=== PATIENT | female | born 1985 ===

== ENCOUNTER 2016-12-14 07:42 | Day surgery (SDC) | payer OTHER ==
[2016-08-24 01:08] VITALS: BMI 30.2
[2016-12-14] MEDS ORDERED: Lactated Ringer's 500 ML IV ONE (10:13)
[2016-12-14 10:17] VITALS: TEMP 96.7
[2016-12-14 11:45] VITALS: O2SAT 99
[2016-12-14 11:47] VITALS: BP 120/70; PULSE 88; RESP 14
== END 2016-12-14 12:00 | disposition home or self-care (01) ==
LOC: H.ENDO 07:42
PROVIDERS: ATTEND Internal Medicine Gastroenterology
DX: K30 Functional dyspepsia (principal); K31.9 Disease of stomach and duodenum, unspecified

== ENCOUNTER 2017-02-07 15:55 | Emergency (ER) | payer OTHER ==
[2017-02-07 15:55] VITALS: BMI 30.2
[2017-02-07 16:01] VITALS: BP 142/81; RESP 18; O2SAT 99
--- NOTE | 2017-02-07 16:27 | ED PDOC ---
HPI: CCC, URI, Sore Throat Time Seen by Provider: 02/07/17 16:02 Chief Complaint (Nursing): ENT Problem Chief Complaint (Provider): left ear pain History Per: Patient Onset/Duration Of Symptoms: Days (x3 days) Associated Symptoms: Fever. denies: Cough, Nasal Congestion Ear Symptoms: Left: Ear Pain, Ear Swelling Additional Complaint(s): 31 year old female presents to the ED with left ear pain for 3 days associated with swelling to left ear and fever. Tylenol has helped the fever and the pain somewhat. Patient denies any bleeding or drainage from left ear. She has slight muffled hearing. Denies any dizziness or headache, no associated sore throat. PMD: Sammy Mckinley Past Medical History Reviewed: Historical Data, Nursing Documentation, Vital Signs Vital Signs: Last Vital Signs Temp 100.0 F H 02/07/17 15:59 Pulse 105 H 02/07/17 15:59 Resp 18 02/07/17 15:59 BP 142/81 02/07/17 15:59 Pulse Ox 99 02/07/17 16:36 - Medical History PMH: HTN - Surgical History Surgical History: - Family History Family History: States: No Known Family Hx - Living Arrangements Living Arrangements: With Family - Social History Current smoker - smoking cessation education provided: No Alcohol: None Drugs: Denies - Home Medications Home Medications: Ambulatory Orders Medication Instructions Recorded Losartan/Hydrochlorothiazide 1 tab PO DAILY 12/14/16 [Losartan-Hctz 100-12.5 mg Tab] Ibuprofen [Motrin] 600 mg PO Q6 PRN #15 tab 02/07/17 Neomycin/Polymyxin/Hydrocort 4 drop TOP BID #1 bottle 02/07/17 [Cortisporin Otic Soln] Sulfamethoxazole/Trimethoprim 1 tab PO BID #14 tab 02/07/17 [Bactrim DS 800 mg-160 mg] - Allergies Allergies/Adverse Reactions: Allergies Allergy/AdvReac Type Severity Reaction Status Date / Time No Known Allergies Allergy Verified 12/14/16 10:03 Review of Systems ROS Statement: Except As Marked, All Systems Reviewed And Found Negative Constitutional: Positive for: Fever ENT: Positive for: Ear Pain (Left). Negative for: Throat Pain, Throat Swelling Respiratory: Negative for: Cough, Other (No congestion.) Gastrointestinal: Negative for: Nausea, Vomiting Neurological: Negative for: Headache, Dizziness Physical Exam - Reviewed Nursing Documentation Reviewed: Yes Vital Signs Reviewed: Yes - Physical Exam Appears: Positive for: Well, Non-toxic, No Acute Distress Head Exam: Positive for: ATRAUMATIC, NORMAL INSPECTION, NORMOCEPHALIC Skin: Positive for: Normal Color. Negative for: Rash Eye Exam: Positive for: Normal appearance ENT: Positive for: Other (Left ear - moderate swelling and exudate to left AC consistent with otitis externa. Moderate pain on pulling external ear. No external cellulitis, no active bleeding, no drainage) Neck: Positive for: Painless ROM Cardiovascular/Chest: Positive for: Regular Rate, Rhythm Respiratory: Positive for: Normal Breath Sounds Neurologic/Psych: Positive for: Alert, Oriented, Gait (steady) - Laboratory Results Urine POC: Negative - ECG O2 Sat by Pulse Oximetry: 99 (RA) Pulse Ox Interpretation: Normal Medical Decision Making Medical Decision Makin: Initial Impression: Otitis externa Initial Plan: * test * Motrin dose * Re-Evaluation Patient will be prescribed cortisporin otic drops, bactrim and motrin. Patient was referred to ENT cannoneer and instructed to follow up in 1-2 days. Scribe Attestation: Documented by Sabino Hayward acting as a scribe for Mackenzie White PA-C. Provider Scribe Attestation: All medical record entries made by the Scribe were at my direction and personally dictated by me. I have reviewed the chart and agree that the record accurately reflects my personal performance of the history, physical exam, medical decision making, and the department course for this patient. I have also personally directed, reviewed, and agree with the discharge instructions and disposition. Disposition - Clinical Impression Clinical Impression: Otitis externa - Patient ED Disposition Is Patient to be Admitted: No Counseled Patient/Family Regarding: Diagnosis, Need For Followup, Rx Given - Disposition Referrals: Boris Redd MD [Staff Provider] - Disposition: Routine/Home Disposition Time: 17:16 Condition: STABLE Additional Instructions: Take rx meds as directed. Follow up in 1-2 days with ear, nose and throat specialist. Prescriptions: Ibuprofen [Motrin] 600 mg PO Q6 PRN #15 tab PRN Reason: Pain, Moderate (4-7) Neomycin/Polymyxin/Hydrocort [Cortisporin Otic Soln] 4 drop TOP BID #1 bottle Sulfamethoxazole/Trimethoprim [Bactrim DS 800 mg-160 mg] 1 tab PO BID #14 tab Instructions: Otitis Externa (ED) Forms: [facility] (Belarusian) Print Language: CROATIAN
[2017-02-07 17:15] VITALS: PULSE 88; TEMP 99.4
== END 2017-02-07 17:54 | disposition home or self-care (01) ==
LOC: H.ER 15:55
DX: H60.92 Unspecified otitis externa, left ear (principal)

== ENCOUNTER 2017-04-11 14:56 | Emergency (ER) | payer OTHER ==
[2017-04-11 14:57] VITALS: BMI 30.2
[2017-04-11 15:04] VITALS: BP 114/76; PULSE 79; RESP 16; TEMP 98.4; O2SAT 99
--- NOTE | 2017-04-11 16:07 | ED PDOC ---
Upper Extremity Pain/Injury Time Seen by Provider: 04/11/17 15:07 Chief Complaint (Nursing): Upper Extremity Problem/Injury Chief Complaint (Provider): Finger and Hand Pain History Per: Patient History/Exam Limitations: no limitations Onset/Duration Of Symptoms: Days Current Symptoms Are (Timing): Still Present Quality: "Pain" Pain Scale Rating Of: 10 Exacerbating Factor(s): Movement Additional Complaint(s): Collette Meyer, a 32 year old female, who has a past medical history of hypertension presents to the ED complaining of right hand and finger pain. The patient states that the pain radiates up her arm to her neck. She states that the pain is very severe and because of it she cannot bend her fingers. Patient also notes some tingling in the right arm. She further reports that she was seen by a neurologist who told her she had a pinched nerve. She states that the physical therapy is not working and neither is the tramadol she was prescribed. PMD:Dr. Andrea,Baudilio Mccabe Past Medical History Reviewed: Historical Data, Nursing Documentation, Vital Signs Vital Signs: Last Vital Signs Temp 98.4 F 04/11/17 15:00 Pulse 79 04/11/17 15:00 Resp 16 04/11/17 15:00 BP 114/76 04/11/17 15:00 Pulse Ox 99 04/11/17 15:00 - Medical History PMH: HTN Denies: Chronic Kidney Disease - Surgical History Surgical History: No Surg Hx, - Family History Family History: States: Unknown Family Hx - Social History Current smoker - smoking cessation education provided: No Ex-Smoker (has not smoked in the last 12 months): No Alcohol: Social Drugs: Denies - Immunization History Hx Tetanus Toxoid Vaccination: No Hx Influenza Vaccination: No Hx Pneumococcal Vaccination: No - Home Medications Home Medications: Ambulatory Orders Medication Instructions Recorded Losartan/Hydrochlorothiazide 1 tab PO DAILY 12/14/16 [Losartan-Hctz 100-12.5 mg Tab] Ibuprofen [Motrin] 600 mg PO Q6 PRN #15 tab 02/07/17 Neomycin/Polymyxin/Hydrocort 4 drop TOP BID #1 bottle 02/07/17 [Cortisporin Otic Soln] Sulfamethoxazole/Trimethoprim 1 tab PO BID #14 tab 02/07/17 [Bactrim DS 800 mg-160 mg] - Allergies Allergies/Adverse Reactions: Allergies Allergy/AdvReac Type Severity Reaction Status Date / Time No Known Allergies Allergy Verified 12/14/16 10:03 Review of Systems Musculoskeletal: Positive for: Hand Pain (right and pain) Physical Exam - Reviewed Nursing Documentation Reviewed: Yes Vital Signs Reviewed: Yes - Physical Exam Appears: Positive for: Well, Non-toxic, No Acute Distress Head Exam: Positive for: ATRAUMATIC, NORMAL INSPECTION, NORMOCEPHALIC Skin: Positive for: Normal Color, Warm, DRY Eye Exam: Positive for: Normal appearance ENT: Positive for: Normal ENT Inspection Neck: Positive for: Normal, Painless ROM Cardiovascular/Chest: Positive for: Regular Rate, Rhythm Respiratory: Positive for: Normal Breath Sounds. Negative for: Accessory Muscle Use Pulses-Radial (L): 2+ Pulses-Radial (R): 2+ Back: Positive for: Normal Inspection Extremity: Positive for: Normal ROM (Right wrist ), Swelling, Other ((+) Tinnel and phalen's right wrist ). Negative for: Deformity Neurologic/Psych: Positive for: Alert, Oriented - ECG O2 Sat by Pulse Oximetry: 99 (RA) Pulse Ox Interpretation: Normal Medical Decision Making Medical Decision Makin Initial Impression 32 y/o female presenting with right hand pain Initial Plan: * Upreg * Toradol 600mg IM * Reevaluation * * Wrist splint given ___ Scribe Attestation Documented by Matilda Robledo acting as a scribe for Brenna Neol PA-C. Scribe Attestation All medical record entries made by the Scribe were at my direction and personally dictated by me. I have reviewed the chart and agree that the record accurately reflects my personal performance of the history, physical exam, medical decision making, and the department course for this patient. I have also personally directed, reviewed, and agree with the discharge instructions and disposition. Disposition - Clinical Impression Clinical Impression: Carpal tunnel syndrome - Patient ED Disposition Is Patient to be Admitted: No Counseled Patient/Family Regarding: Studies Performed, Diagnosis - Disposition Disposition: Routine/Home Disposition Time: 16:00 Condition: STABLE Instructions: Carpal Tunnel Syndrome (ED) Forms: [facility] (Lithuanian), [facility] ED School/Work Excuse Print Language: TAMAZIGHT - POA Present On Arrival: None
== END 2017-04-11 16:31 | disposition home or self-care (01) ==
LOC: H.ER 14:56
DX: G56.01 Carpal tunnel syndrome, right upper limb (principal)
CPT/HCPCS: 81025; 96372; 99283; J1885

== ENCOUNTER 2017-07-04 10:22 | Emergency (ER) | payer MEDICAID, OTHER ==
[2017-07-04 10:29] VITALS: BMI 33.6
[2017-07-04] MEDS ORDERED: Sodium Chloride 0.9% 1,000 ML IV STA (10:55)
--- NOTE | 2017-07-04 10:59 | ED PDOC ---
HPI: Female Pain Time Seen by Provider: 07/04/17 10:27 Chief Complaint (Nursing): Back Pain Chief Complaint (Provider): UTI History Per: Patient Additional Complaint(s): Patient is a 32 yo female, PMH of HTN, presents to ED with complaints of having burning while urinating last night and got worse this morning. Mild back pain. No feve ror chills. Mild nausea, no vomiting. Past Medical History Reviewed: Historical Data, Nursing Documentation, Vital Signs Vital Signs: Last Vital Signs Temp 97 F L 07/04/17 10:40 Pulse 84 07/04/17 10:40 Resp BP 178/100 H 07/04/17 10:40 Pulse Ox 100 07/04/17 10:27 - Medical History PMH: HTN Denies: Chronic Kidney Disease - Surgical History Surgical History: - Family History Family History: States: Unknown Family Hx - Living Arrangements Living Arrangements: With Family - Social History Current smoker - smoking cessation education provided: No Alcohol: Social Drugs: Denies - Immunization History Hx Tetanus Toxoid Vaccination: No Hx Influenza Vaccination: No Hx Pneumococcal Vaccination: No - Home Medications Home Medications: Ambulatory Orders Medication Instructions Recorded Losartan/Hydrochlorothiazide 1 tab PO DAILY 12/14/16 [Losartan-Hctz 100-12.5 mg Tab] Ibuprofen [Motrin] 600 mg PO Q6 PRN #15 tab 02/07/17 Neomycin/Polymyxin/Hydrocort 4 drop TOP BID #1 bottle 02/07/17 [Cortisporin Otic Soln] Sulfamethoxazole/Trimethoprim 1 tab PO BID #14 tab 02/07/17 [Bactrim DS 800 mg-160 mg] Cephalexin [cephalexin] 500 mg PO BID 14 Days cap 07/04/17 Ibuprofen [Motrin] 600 mg PO Q6 #20 tab 07/04/17 - Allergies Allergies/Adverse Reactions: Allergies Allergy/AdvReac Type Severity Reaction Status Date / Time No Known Allergies Allergy Verified 12/14/16 10:03 Review of Systems ROS Statement: Except As Marked, All Systems Reviewed And Found Negative Gastrointestinal: Positive for: Abdominal Pain Genitourinary Female: Positive for: Dysuria Physical Exam - Reviewed Nursing Documentation Reviewed: Yes Vital Signs Reviewed: Yes - Physical Exam Appears: Positive for: Non-toxic, No Acute Distress, Uncomfortable Head Exam: Positive for: ATRAUMATIC, NORMAL INSPECTION, NORMOCEPHALIC Skin: Positive for: Normal Color, Warm, DRY Eye Exam: Positive for: EOMI, Normal appearance, PERRL ENT: Positive for: Normal ENT Inspection Neck: Positive for: Normal, Painless ROM Cardiovascular/Chest: Positive for: Regular Rate, Rhythm Respiratory: Positive for: CNT, Normal Breath Sounds Gastrointestinal/Abdominal: Positive for: Bowel Sounds, Soft, Tenderness ( suprapubic) Back: Positive for: Normal Inspection, L CVA Tenderness, R CVA Tenderness Extremity: Positive for: Normal ROM Neurologic/Psych: Positive for: Alert, Oriented - Laboratory Results Result Diagrams: 07/04/17 11:21 07/04/17 11:21 - ECG O2 Sat by Pulse Oximetry: 100 Medical Decision Making Medical Decision Making: Iv access established and treatment initiate with IVF and Toradol. Diagnostics ordered and labs reviewed with pt who demonstrated full understanding. Pt afebrile. WBC 12 IV Rocephin started for DX. Pyelonephritis Pt reports feeling greatly improved on re-eval. Importance of follow up stressed. Advised to return to ED with any concerns. Disposition - Clinical Impression Clinical Impression: Pyelonephritis - Patient ED Disposition Is Patient to be Admitted: No - Disposition Disposition: Routine/Home Disposition Time: 12:00 Condition: STABLE Prescriptions: Cephalexin [cephalexin] 500 mg PO BID 14 Days cap Ibuprofen [Motrin] 600 mg PO Q6 #20 tab Instructions: Acute Pyelonephritis (ED) Forms: [facility] (Lithuanian) Print Language: LITHUANIAN
[2017-07-04 11:26] LABS: BASO # 0.1 K/uL (0.0-0.2); BASO % 0.5 % (0.0-2.0); EOS % 0.2 % (0.0-4.0); HEMOGLOBIN 13.4 g/dL (12.0-16.0); LYMPH # 2.4 K/uL (1.0-4.3); LYMPH % 19.7 % (20.0-40.0); MEAN CELL VOLUME 84.4 fl (81.0-99.0); MEAN CORPUSCULAR HEMOGLOBIN 27.9 pg (27.0-31.0); MEAN PLATELET VOLUME 10.8 fl (7.2-11.7); MONO # 0.5 K/uL (0.0-0.8); MONO % 3.8 % (0.0-10.0); NEUT # 9.1 K/uL (1.8-7.0); NEUT % 75.8 % (50.0-75.0); RBC 4.82 Mil/uL (3.80-5.20); RED CELL DISTRIBUTION WIDTH 13.4 % (11.5-14.5)
[2017-07-04 11:38] LABS: ALBUMIN 4.6 g/dL (3.5-5.0); ALT/SGPT 75 U/L (9-52); AST/SGOT 42 U/L (14-36); BLOOD UREA NITROGEN 10 mg/dl (7-17); CALCIUM 9.6 mg/dL (8.4-10.2); GFR AFRICAN-AMERICAN > 60; GFR NON-AFRICAN AMERICAN > 60
[2017-07-04 11:38] LABS: SQUAMOUS EPITHIAL 3 /hpf (0-5); URINE AMORPHOUS SEDIMENT RARE /ul (<OCC); URINE BILIRUBIN NEGATIVE (NEGATIVE); URINE BLOOD LARGE (NEGATIVE); URINE CLARITY CLOUDY (Clear); URINE COLOR YELLOW (YELLOW); URINE GLUCOSE (UA) NEG (Normal); URINE LEUKOCYTE ESTERASE LARGE Leu/uL (Negative); URINE NITRATE POSITIVE (NEGATIVE); URINE PROTEIN 100 mg/dL (NEGATIVE); URINE UROBILINOGEN 0.2-1.0 mg/dL (0.2-1.0)
[2017-07-04 11:39] LABS: ALB/GLOB RATIO 1.1 (1.0-2.1)
[2017-07-04] MEDS ORDERED: cefTRIAXone (Rocephin) 1 gm Inj ONE (12:18)
[2017-07-04 13:51] VITALS: BP 144/81; PULSE 83; TEMP 98.6; O2SAT 99
== END 2017-07-04 14:00 | disposition home or self-care (01) ==
LOC: H.ER 10:22
DX: N12 Tubulo-interstitial nephritis, not specified as acute or chronic (principal); I10 Essential (primary) hypertension
CPT/HCPCS: 80053; 81003; 81025; 85025; 87086; 87181; 96374; 99283; J0696; J1885; J7040

== ENCOUNTER 2017-12-20 10:24 | Emergency (ER) | payer MEDICAID, OTHER ==
[2017-12-20 10:28] VITALS: BMI 34.7
[2017-12-20 10:29] VITALS: BP 130/86; PULSE 87; RESP 16; TEMP 98; O2SAT 98
--- NOTE | 2017-12-20 10:56 | ED PDOC ---
HPI: Headache Time Seen by Provider: 12/20/17 10:40 Chief Complaint (Provider): Bilateral Arm & Shoulder Pain History Per: Patient History/Exam Limitations: no limitations Current Symptoms Are (Timing): Still Present Additional Complaint(s): 32 years old female with history of hypertension presents to the ED for evaluation of bilateral arm and shoulder pain onset 1 month. Patient reports she has been unable to sleep from the pain and developed headaches diffused to face 3 days ago. She states the headaches are not the worst of her life and is non thunderclap headache. Patient reports pain worsens with movement and associated with numbness. Patient reports taking Ibuprofen. She denies any chest pain, fever, vomiting, back pain, abdominal pain or weakness. PMD: Tootie Haji Past Medical History Reviewed: Historical Data, Nursing Documentation, Vital Signs Vital Signs: Last Vital Signs Temp 98 F 12/20/17 10:28 Pulse 87 12/20/17 10:28 Resp 16 12/20/17 10:28 BP 130/86 12/20/17 10:28 Pulse Ox 98 12/20/17 10:28 - Medical History PMH: HTN Denies: Chronic Kidney Disease - Surgical History Surgical History: - Family History Family History: States: Unknown Family Hx - Social History Current smoker - smoking cessation education provided: No Alcohol: None Drugs: Denies - Immunization History Hx Tetanus Toxoid Vaccination: No Hx Influenza Vaccination: No Hx Pneumococcal Vaccination: No - Home Medications Home Medications: Ambulatory Orders Medication Instructions Recorded Losartan/Hydrochlorothiazide 1 tab PO DAILY 12/14/16 [Losartan-Hctz 100-12.5 mg Tab] Ibuprofen [Motrin] 600 mg PO Q6 PRN #15 tab 02/07/17 Neomycin/Polymyxin/Hydrocort 4 drop TOP BID #1 bottle 02/07/17 [Cortisporin Otic Soln] Sulfamethoxazole/Trimethoprim 1 tab PO BID #14 tab 02/07/17 [Bactrim DS 800 mg-160 mg] Cephalexin [cephalexin] 500 mg PO BID 14 Days cap 07/04/17 Ibuprofen [Motrin] 600 mg PO Q6 #20 tab 07/04/17 Cyclobenzaprine [Cyclobenzaprine 10 mg PO TID PRN #15 tab 12/20/17 HCl] Methylprednisolone [Medrol Dose 4 mg PO ASDIR #21 mg 12/20/17 Pack (21 tabs)] traMADol [Ultram] 50 mg PO TID PRN #15 tab 12/20/17 - Allergies Allergies/Adverse Reactions: Allergies Allergy/AdvReac Type Severity Reaction Status Date / Time No Known Allergies Allergy Verified 12/20/17 10:56 Review of Systems ROS Statement: Except As Marked, All Systems Reviewed And Found Negative Constitutional: Negative for: Fever Cardiovascular: Negative for: Chest Pain Gastrointestinal: Negative for: Vomiting Musculoskeletal: Positive for: Neck Pain, Shoulder Pain (bilateral), Arm Pain ( bilateral), Hand Pain (bilateral). Negative for: Back Pain Neurological: Positive for: Numbness, Headache. Negative for: Weakness Physical Exam - Reviewed Nursing Documentation Reviewed: Yes Vital Signs Reviewed: Yes - Physical Exam Appears: Positive for: Non-toxic, No Acute Distress Head Exam: Positive for: ATRAUMATIC, NORMOCEPHALIC Skin: Positive for: Normal Color, Warm, Dry Eye Exam: Positive for: Normal appearance, EOMI, PERRL ENT: Positive for: Normal ENT Inspection Neck: Positive for: Supple. Negative for: Normal (Diffused tenderness to bilateral neck paraspinal) Cardiovascular/Chest: Positive for: Regular Rate, Rhythm. Negative for: Murmur Respiratory: Positive for: Normal Breath Sounds. Negative for: Respiratory Distress Gastrointestinal/Abdominal: Positive for: Normal Exam, Soft. Negative for: Tenderness Back: Positive for: Other (trapezius) Extremity: Positive for: Normal ROM (with pain), Tenderness (on palpitation to right wrist carpal tunnel area) Neurologic/Psych: Positive for: Alert, Oriented - ECG O2 Sat by Pulse Oximetry: 98 (RA) Pulse Ox Interpretation: Normal - Progress Re-evaluation Time: 14:00 Condition: Re-examined, Improved Medical Decision Making Medical Decision Making: Time: 1117 Initial Impression: headaches, neck pain, bilateral arm pain. Differential includes but not limited to carbinol syndrome, tension headaches. Initial Plan: --CT Head w/o contrast --Flexeril 10 mg PO --Toradol 30 mg IM [address] FINDINGS: HEMORRHAGE: No intracranial hemorrhage. BRAIN: No mass effect or edema. No atrophy or chronic microvascular ischemic changes. VENTRICLES: Unremarkable. No hydrocephalus. CALVARIUM: Unremarkable. PARANASAL SINUSES: Unremarkable as visualized. No significant inflammatory changes. MASTOID AIR CELLS: Unremarkable as visualized. No inflammatory changes. OTHER FINDINGS: None. IMPRESSION: No acute intracranial pathology. ----- Scribe Attestation: Documented by Fannie Saleh, acting as a scribe for Helen Padgett MD. Provider Scribe Attestation: All medical record entries made by the Scribe were at my direction and personally dictated by me. I have reviewed the chart and agree that the record accurately reflects my personal performance of the history, physical exam, medical decision making, and the department course for this patient. I have also personally directed, reviewed, and agree with the discharge instructions and disposition. Disposition - Clinical Impression Clinical Impression: Headache, Carpal tunnel syndrome, Acute pain of both shoulders - Patient ED Disposition Is Patient to be Admitted: No Doctor Will See Patient In The: Office Counseled Patient/Family Regarding: Studies Performed, Diagnosis, Need For Followup - Disposition Referrals: Mark Talley MD [Staff Provider] - Disposition: Routine/Home Disposition Time: 14:04 Condition: GOOD Additional Instructions: Take your medications as instructed. Wear wrist brace on affected hands. Follow up with your PCP in 2--3 days. Prescriptions: Cyclobenzaprine [Cyclobenzaprine HCl] 10 mg PO TID PRN #15 tab PRN Reason: Muscle Spasm Methylprednisolone [Medrol Dose Pack (21 tabs)] 4 mg PO ASDIR #21 mg traMADol [Ultram] 50 mg PO TID PRN #15 tab PRN Reason: Pain, Severe (8-10) Instructions: Carpal Tunnel Syndrome (DC), Headache, Adult (DC), Shoulder Pain (DC) Forms: [facility] ED School/Work Excuse Print Language: ANGUILLAN
--- NOTE | 2017-12-20 12:07 | CT ---
PROCEDURE: CT HEAD WITHOUT CONTRAST. HISTORY: headache COMPARISON: None available. TECHNIQUE: Axial computed tomography images were obtained through the head/brain without intravenous contrast. Radiation dose: Total exam DLP = 796.3 mGy-cm. This CT exam was performed using one or more of the following dose reduction techniques: Automated exposure control, adjustment of the mA and/or kV according to patient size, and/or use of iterative reconstruction technique. FINDINGS: HEMORRHAGE: No intracranial hemorrhage. BRAIN: No mass effect or edema. No atrophy or chronic microvascular ischemic changes. VENTRICLES: Unremarkable. No hydrocephalus. CALVARIUM: Unremarkable. PARANASAL SINUSES: Unremarkable as visualized. No significant inflammatory changes. MASTOID AIR CELLS: Unremarkable as visualized. No inflammatory changes. OTHER FINDINGS: None. IMPRESSION: No acute intracranial pathology.
== END 2017-12-20 14:19 | disposition home or self-care (01) ==
LOC: H.ER 10:24
DX: G56.00 Carpal tunnel syndrome, unspecified upper limb (principal); M25.511 Pain in right shoulder; M25.512 Pain in left shoulder
CPT/HCPCS: 70450; 81025; 96372; 99283; J1885

== ENCOUNTER 2017-12-29 20:15 | Emergency (ER) | payer OTHER ==
[2017-12-29 20:16] VITALS: BMI 34.7
[2017-12-29] MEDS ORDERED: Sodium Chloride 0.9% 1,000 ML IV STA (20:55)
--- NOTE | 2017-12-29 21:02 | ED PDOC ---
HPI: Abdomen Time Seen by Provider: 12/29/17 20:49 Chief Complaint (Nursing): Abdominal Pain Chief Complaint (Provider): Abdominal Pain History Per: Patient History/Exam Limitations: no limitations Onset/Duration Of Symptoms: Days (x2) Current Symptoms Are (Timing): Still Present Associated Symptoms: Fever, Nausea, Diarrhea. denies: Urinary Symptoms Additional Complaint(s): 32 year old female presents to the ED complaining of fever, nausea, abdominal pain, and diarrhea for 2 days. Patient last took tylenol at 14:00 and pepcid at 17:00 without relief. Denies any genitourinary symptoms. PMD: Baudilio Barton Past Medical History Reviewed: Historical Data, Nursing Documentation, Vital Signs Vital Signs: Last Vital Signs Temp 99.3 F 12/30/17 03:36 Pulse 97 H 12/30/17 03:36 Resp 18 12/30/17 03:36 BP 130/79 12/30/17 03:36 Pulse Ox 97 01/02/18 10:50 - Medical History PMH: HTN Denies: Chronic Kidney Disease Other PMH: H. Pylori - Surgical History Surgical History: - Family History Family History: States: Unknown Family Hx - Social History Current smoker - smoking cessation education provided: No Alcohol: None - Immunization History Hx Tetanus Toxoid Vaccination: No Hx Influenza Vaccination: No Hx Pneumococcal Vaccination: No - Home Medications Home Medications: Ambulatory Orders Medication Instructions Recorded Losartan/Hydrochlorothiazide 1 tab PO DAILY 12/14/16 [Losartan-Hctz 100-12.5 mg Tab] Ibuprofen [Motrin] 600 mg PO Q6 PRN #15 tab 02/07/17 Neomycin/Polymyxin/Hydrocort 4 drop TOP BID #1 bottle 02/07/17 [Cortisporin Otic Soln] Sulfamethoxazole/Trimethoprim 1 tab PO BID #14 tab 02/07/17 [Bactrim DS 800 mg-160 mg] Cephalexin [cephalexin] 500 mg PO BID 14 Days cap 07/04/17 Ibuprofen [Motrin] 600 mg PO Q6 #20 tab 07/04/17 Cyclobenzaprine [Cyclobenzaprine 10 mg PO TID PRN #15 tab 12/20/17 HCl] Methylprednisolone [Medrol Dose 4 mg PO ASDIR #21 mg 12/20/17 Pack (21 tabs)] traMADol [Ultram] 50 mg PO TID PRN #15 tab 12/20/17 Ciprofloxacin [Cipro] 500 mg PO BID 7 Days tab 12/30/17 Dicyclomine [Bentyl] 20 mg PO BID #30 tab 12/30/17 Famotidine [Pepcid] 20 mg PO BID #20 tab 12/30/17 - Allergies Allergies/Adverse Reactions: Allergies Allergy/AdvReac Type Severity Reaction Status Date / Time No Known Allergies Allergy Verified 12/20/17 10:56 Review of Systems ROS Statement: Except As Marked, All Systems Reviewed And Found Negative Constitutional: Positive for: Fever Gastrointestinal: Positive for: Nausea, Abdominal Pain, Diarrhea Genitourinary Female: Negative for: Dysuria, Hematuria, Vaginal Discharge, Vaginal Bleeding Physical Exam - Reviewed Nursing Documentation Reviewed: Yes Vital Signs Reviewed: Yes - Physical Exam Appears: Positive for: Non-toxic, No Acute Distress (mild) Head Exam: Positive for: ATRAUMATIC, NORMOCEPHALIC Skin: Positive for: Normal Color, Warm, Dry Eye Exam: Positive for: Normal appearance Neck: Positive for: Normal, Painless ROM Cardiovascular/Chest: Positive for: Tachycardia Respiratory: Positive for: Normal Breath Sounds. Negative for: Wheezing, Respiratory Distress Gastrointestinal/Abdominal: Positive for: Tenderness (generalized). Negative for: Guarding, Rebound Back: Positive for: Normal Inspection. Negative for: L CVA Tenderness, R CVA Tenderness Extremity: Positive for: Normal ROM Neurologic/Psych: Positive for: Alert, Oriented. Negative for: Motor/Sensory Deficits - Laboratory Results Result Diagrams: 12/29/17 21:34 12/29/17 21:34 - ECG O2 Sat by Pulse Oximetry: 97 (RA) Pulse Ox Interpretation: Normal Medical Decision Making Medical Decision Making: Initial Impression: fever, abdominal pain. Differentials include but not limited to gastroenteritis, cholecystitis, appendicitis Initial Plan: --VBG shock panel --CT abd/pelvis --CMP --Lipase --ED urine --ED urine dipstick --CBC --PTT --Prothrombin --Morphine 2mg IV --Sodium chloride 1000mL IV --Tylenol 650mg PO --Zofran 4mg IV --Blood culture --Urine culture --Urinalysis 23:58 Patient states she is feeling better. Upon reevaluation, abdomen remains tender all 4 quadrants, tachy 119. Will order additional IVF, Morphine, Motrin and pelvic ultrasound. Scribe Attestation: Documented by Eliseo Padilla acting as a scribe for Stephany Bear MD. Provider Scribe Attestation: All medical record entries made by the Scribe were at my direction and personally dictated by me. I have reviewed the chart and agree that the record accurately reflects my personal performance of the history, physical exam, medical decision making, and the department course for this patient. I have also personally directed, reviewed, and agree with the discharge instructions and disposition. Disposition - Clinical Impression Clinical Impression: UTI (urinary tract infection), Gastritis - Disposition Referrals: Baudilio Andrea MD [Family Provider] - Disposition: Transfer of Care Disposition Time: 00:00 Condition: STABLE Prescriptions: Ciprofloxacin [Cipro] 500 mg PO BID 7 Days tab Dicyclomine [Bentyl] 20 mg PO BID #30 tab Famotidine [Pepcid] 20 mg PO BID #20 tab Instructions: Gastritis, Urinary Tract Infection, Adult (DC) Forms: [employer] ([place] Citizen), [facility] ED School/Work Excuse Print Language: [place] Patient Signed Over To: Anthony Oneill
[2017-12-29 21:39] LABS: BASO % 0.3 % (0.0-2.0); EOS % 0.2 % (0.0-4.0); HEMOGLOBIN 14.4 g/dL (12.0-16.0); LYMPH # 1.1 K/uL (1.0-4.3); LYMPH % 11.6 % (20.0-40.0); MEAN CELL VOLUME 86.3 fl (81.0-99.0); MEAN CORPUSCULAR HEMOGLOBIN 29.4 pg (27.0-31.0); MEAN CORPUSCULAR HGB CONC 34.1 g/dL (33.0-37.0); MEAN PLATELET VOLUME 10.6 fl (7.2-11.7); MONO # 0.4 K/uL (0.0-0.8); MONO % 4.2 % (0.0-10.0); NEUT # 8.1 K/uL (1.8-7.0); NEUT % 83.7 % (50.0-75.0); RBC 4.89 Mil/uL (3.80-5.20); RED CELL DISTRIBUTION WIDTH 13.2 % (11.5-14.5); WHITE BLOOD COUNT 9.7 K/uL (4.8-10.8)
[2017-12-29 21:39] LABS: VENOUS BLOOD GAS BASE EXCESS 3.9 mmol/L (0.0-2.0); VENOUS BLOOD GAS PCO2 42 mmHg (40-60); VENOUS BLOOD GAS PO2 32 mm/Hg (30-55); VENOUS BLOOD PH 7.44 (7.32-7.43)
[2017-12-29 22:08] LABS: INR 1.2 (0.9-1.2); PARTIAL THROMBOPLASTIN TIME 37.6 Seconds (25.6-37.1); PROTHROMBIN TIME 12.8 Seconds (9.8-13.1)
[2017-12-29 22:09] LABS: ALB/GLOB RATIO 1.2 (1.0-2.1); ALBUMIN 4.7 g/dL (3.5-5.0); ALT/SGPT 59 U/L (9-52); AST/SGOT 39 U/L (14-36); BLOOD UREA NITROGEN 12 mg/dl (7-17); CALCIUM 9.4 mg/dL (8.4-10.2); GFR AFRICAN-AMERICAN > 60; GFR NON-AFRICAN AMERICAN > 60; LIPASE 54 U/L (23-300)
[2017-12-29 22:25] LABS: URINE BILIRUBIN NEGATIVE (NEGATIVE); URINE CLARITY CLOUDY (Clear); URINE COLOR YELLOW (YELLOW); URINE GLUCOSE (UA) NEGATIVE (Normal)
[2017-12-29 22:26] LABS: SQUAMOUS EPITHIAL 5 /hpf (0-5); URINE BLOOD LARGE (NEGATIVE); URINE LEUKOCYTE ESTERASE NEGATIVE Leu/uL (Negative); URINE PROTEIN 100 mg/dL (NEGATIVE); URINE UROBILINOGEN 0.2 mg/dL (0.2-1.0)
[2017-12-29 22:27] LABS: URINE BACTERIA FEW (<OCC)
[2017-12-29] MEDS ORDERED: Potassium Chloride 20 mEq ER Tab PO STA (22:30)
[2017-12-29] MEDS ORDERED: Iohexol 300 100 ML IJ ONE (22:32)
[2017-12-29] MEDS ORDERED: Sodium Chloride 0.9% 50 ML IV ONE (22:33)
[2017-12-29] MEDS ORDERED: Potassium Chloride 20 mEq ER Tab PO ONE (23:13)
[2017-12-30] MEDS ORDERED: Sodium Chloride 0.9% 1,000 ML IV STA (00:07)
[2017-12-30 00:09] VITALS: RESP 18
[2017-12-30] MEDS ORDERED: cefTRIAXone (Rocephin) 1 gm Inj ONE (00:15)
--- NOTE | 2017-12-30 02:39 | ED PDOC ---
- Laboratory Results Result Diagrams: 12/29/17 21:34 12/29/17 21:34 - ECG O2 Sat by Pulse Oximetry: 98 (RA) Pulse Ox Interpretation: Normal Medical Decision Making Medical Decision Making: Time: 00:00 Patient was signed out to me by Dr. Bear pending CT and reevaluation. CT Abd/Pelvis: FINDINGS: Small left lung calcification. The liver is decreased in attenuation consistent with fatty infiltration. The spleen is normal. The pancreas is normal. No gallstones. The previously seen left UVJ calculi and left perinephric stranding/fluid is noted on the present. Questionable mild wall thickening of a few distal ileal loops in the right pelvis. Early developing enteritis cannot be excluded. A normal appendix is identified axial images from 112 through 114, coronal images 57 through 75. The uterus appears normal. There is poor definition of the ovaries secondary to surrounding unopacified small bowel loops. A small amount of free fluid is present within the pelvis. IMPRESSION: Possible early developing focal enteritis right lower quadrant.Clinical correlation recommended. Suboptimal visualization of the ovaries. Upon provider reevaluation patient is feeling better, is medically stable, and requires no further treatment in the ED at this time. U/S negative. HR improved. Patient will be discharged. Counseling was provided and all questions were answered regarding diagnosis and need for follow up with PMD. There is agreement to discharge plan. Return if symptoms persist or worsen. Scribe Attestation: Documented by, Gris Dwyer acting as a scribe for Anthony Oneill MD. Provider Scribe Attestation: All medical record entries made by the Scribe were at my direction and personally dictated by me. I have reviewed the chart and agree that the record accurately reflects my personal performance of the history, physical exam, medical decision making, and the department course for this patient. I have also personally directed, reviewed, and agree with the discharge instructions and disposition. Disposition - Clinical Impression Clinical Impression: UTI (urinary tract infection), Gastritis - POA Present On Arrival: None - Disposition Referrals: Baudilio Andrea MD [Family Provider] - Disposition: Routine/Home Disposition Time: 03:30 Condition: STABLE Prescriptions: Ciprofloxacin [Cipro] 500 mg PO BID 7 Days tab Dicyclomine [Bentyl] 20 mg PO BID #30 tab Famotidine [Pepcid] 20 mg PO BID #20 tab Instructions: Gastritis, Urinary Tract Infection, Adult (DC) Forms: [facility] (Kyr[place]) Print Language: JAPANESE
[2017-12-30 03:52] VITALS: BP 130/79; PULSE 97; TEMP 99.3
--- NOTE | 2017-12-30 10:27 | US ---
Date of service: 12/30/2017 HISTORY: BLQ pain COMPARISON: None available. TECHNIQUE: FINDINGS: UTERUS: Measures 12.0 x 5.4 x 6.3 cm. Normal in size and appearance. Anteverted. No fibroid or other mass lesion seen. ENDOMETRIUM: Measures 7.0 mm in diameter. Unremarkable. CERVIX: No cervical abnormality identified. RIGHT OVARY: Measures 3.1 x 2.1 x 1.9 cm. No solid mass. Normal flow. LEFT OVARY: Measures 3.5 x 2.3 x 1.9 cm. No solid mass. Normal flow. Small follicular cyst present measuring 1.1 cm in greatest dimension FREE FLUID: No significant free fluid noted. OTHER FINDINGS: None. IMPRESSION: No acute findings. Note that preliminary report provided by overnight radiology service
--- NOTE | 2017-12-30 12:30 | CT ---
Date of service: 12/29/2017 PROCEDURE: CT Abdomen and Pelvis with contrast HISTORY: Gen abd pain, fever, nausea, diarrhea COMPARISON: Comparison is made with the previous study dated 12/14/2015 TECHNIQUE: Contrast dose: 95 mL of Omnipaque 300. Axial and reformatted coronal and sagittal CT images of the abdomen and pelvis were obtained after IV contrast administration. Radiation dose: Total exam DLP = 850.26 mGy-cm. This CT exam was performed using one or more of the following dose reduction techniques: Automated exposure control, adjustment of the mA and/or kV according to patient size, and/or use of iterative reconstruction technique. FINDINGS: LOWER THORAX: No evidence of acute pathology. Ten linear opacity at the lingula is again noted suggestive of scar tissue. 4 millimeter calcified nodule at the left lower lobe again noted suggestive of calcified granuloma LIVER: [id number] fatty liver infiltration is again noted. No evidence of acute pathology or mass lesion in the liver. The portal vein is patent. GALLBLADDER AND BILE DUCTS: No evidence of acute cholecystitis or biliary obstruction PANCREAS: Unremarkable. No gross lesion or ductal dilatation. SPLEEN: Unremarkable. ADRENALS: Unremarkable. No mass. KIDNEYS AND URETERS: Unremarkable. No hydronephrosis. No solid mass. VASCULATURE: Unremarkable. No aortic aneurysm. BOWEL: There is mild wall thickening noted in the distal small bowel loops at the right lower abdomen and right pelvis suspicious for enteritis. O evidence of high-grade bowel obstruction. APPENDIX: No evidence of appendicitis. PERITONEUM: Unremarkable. No free fluid. No free air. LYMPH NODES: Unremarkable. No enlarged lymph nodes. BLADDER: Unremarkable. REPRODUCTIVE: The uterus is mildly enlarged and heterogeneous likely contains fibroid. BONES: No acute fracture. OTHER FINDINGS: None. IMPRESSION: Mild small-bowel wall thickening noted in the right lower abdomen suggestive of enteritis. Otherwise no evidence of acute pathology in the abdomen and pelvis. Preliminary report was submitted by [facility].
[2018-01-02 10:28] VITALS: O2SAT 97
== END 2017-12-30 03:53 | disposition home or self-care (01) ==
LOC: H.ER 20:15
DX: N39.0 Urinary tract infection, site not specified (principal); K29.70 Gastritis, unspecified, without bleeding; I10 Essential (primary) hypertension
CPT/HCPCS: 74177; 76830; 76856; 80053; 81003; 81025; 82803; 83690; 85025; 85610; 85730; 87040; 87086; 87205; 96374; 96375; 96376; 99284; J0696; J2270; J2405; J7030; Q9967

== ENCOUNTER 2018-01-02 11:14 | Inpatient (IN) | payer OTHER ==
[2018-01-02 11:17] VITALS: BMI 34.7
--- NOTE | 2018-01-02 11:41 | ED PDOC ---
HPI: Abdomen Time Seen by Provider: 01/02/18 11:25 Chief Complaint (Nursing): Abnormal Labs Chief Complaint (Provider): Positive blood culture History Per: Patient History/Exam Limitations: no limitations Additional Complaint(s): Pt was called to return to ED for + blood culture results from 12/29/17. Pt was evaluated for fever and abdominal pain, dx with enteritis and UTI, discharged with Cipro. Pt states she feels better, fever has resolved, only mild epigastric pain. Denies fever, nausea, vomiting, constipation, diarrhea, symptoms. Past Medical History Reviewed: Nursing Documentation, Vital Signs Vital Signs: Last Vital Signs Temp 97 F L 01/02/18 11:22 Pulse 83 01/02/18 11:22 Resp BP 151/90 H 01/02/18 11:22 Pulse Ox 100 01/02/18 11:57 - Medical History PMH: HTN Denies: Chronic Kidney Disease - Surgical History Surgical History: - Family History Family History: States: Unknown Family Hx - Social History Current smoker - smoking cessation education provided: No Alcohol: None - Immunization History Hx Tetanus Toxoid Vaccination: No Hx Influenza Vaccination: No Hx Pneumococcal Vaccination: No - Home Medications Home Medications: Ambulatory Orders Medication Instructions Recorded Losartan/Hydrochlorothiazide 1 tab PO DAILY 12/14/16 [Losartan-Hctz 100-12.5 mg Tab] Ciprofloxacin [Cipro] 500 mg PO BID 7 Days tab 12/30/17 Dicyclomine [Bentyl] 20 mg PO BID #30 tab 12/30/17 Famotidine [Pepcid] 20 mg PO DAILY 01/02/18 - Allergies Allergies/Adverse Reactions: Allergies Allergy/AdvReac Type Severity Reaction Status Date / Time No Known Allergies Allergy Verified 01/02/18 11:19 Review of Systems Constitutional: Negative for: Fever, Chills Cardiovascular: Negative for: Chest Pain, Palpitations Respiratory: Negative for: Cough, Shortness of Breath Gastrointestinal: Positive for: Abdominal Pain (Mild). Negative for: Nausea, Vomiting, Diarrhea, Hematochezia, Hematemesis Genitourinary Female: Negative for: Dysuria, Hematuria, Vaginal Discharge, Vaginal Bleeding Musculoskeletal: Negative for: Neck Pain, Back Pain Skin: Negative for: Rash, Lesions Neurological: Negative for: Headache, Dizziness Physical Exam - Reviewed Nursing Documentation Reviewed: Yes Vital Signs Reviewed: Yes - Physical Exam Appears: Positive for: Well, No Acute Distress Head Exam: Positive for: ATRAUMATIC, NORMAL INSPECTION Skin: Positive for: Normal Color, Warm, Dry Eye Exam: Positive for: Normal appearance, EOMI, PERRL Cardiovascular/Chest: Positive for: Regular Rate, Rhythm Respiratory: Positive for: Normal Breath Sounds. Negative for: Rales, Rhonchi, Wheezing Gastrointestinal/Abdominal: Positive for: Bowel Sounds, Soft, Tenderness (Mild epigastric). Negative for: Guarding, Rebound Back: Positive for: Normal Inspection. Negative for: L CVA Tenderness, R CVA Tenderness Extremity: Positive for: Normal ROM Neurologic/Psych: Positive for: Alert, Oriented - Laboratory Results Result Diagrams: 01/02/18 12:00 01/02/18 12:00 - ECG O2 Sat by Pulse Oximetry: 100 - Physician Consult Information Time Consulting Physican Contacted: 11:50 Physician Contacted: Maxwell Sun Outcome Of Conversation: Case discussed, recommends repeat blood cx, UA and urine cx, admit until organism identified, continue Cipro IV. Medical Decision Making Medical Decision Makin yo female with positive blood culture. - labs Disposition - Clinical Impression Clinical Impression: Urinary tract infection, Bacteremia - Disposition Disposition Time: 13:06 Condition: STABLE - Pt Status Changed To: Hospital Disposition Of: Inpatient - Admit Certification Admit to Inpatient:: After my assessment, the patient will require hospitalization for at least two midnights. This is because of the severity of symptoms shown, intensity of services needed, and/or the medical risk in this patient being treated as an outpatient. - POA Present On Arrival: None
[2018-01-02] MEDS ORDERED: Ciprofloxacin 400mg/200ml D5W 400 MG/200 ML BAG IV STA (11:56)
[2018-01-02] MEDS ORDERED: Ciprofloxacin 400mg/200ml D5W 400 MG/200 ML BAG IVPB ONE (12:23)
[2018-01-02 12:41] LABS: BASO % 0.4 % (0.0-2.0); EOS # 0.1 K/uL (0.0-0.7); EOS % 1.3 % (0.0-4.0); LYMPH % 42.6 % (20.0-40.0); MEAN CELL VOLUME 85.5 fl (81.0-99.0); MEAN CORPUSCULAR HEMOGLOBIN 29.1 pg (27.0-31.0); MEAN CORPUSCULAR HGB CONC 34.1 g/dL (33.0-37.0); MEAN PLATELET VOLUME 10.1 fl (7.2-11.7); MONO # 0.6 K/uL (0.0-0.8); MONO % 5.9 % (0.0-10.0); NEUT # 4.7 K/uL (1.8-7.0); NEUT % 49.8 % (50.0-75.0); RBC 4.48 Mil/uL (3.80-5.20); RED CELL DISTRIBUTION WIDTH 13.1 % (11.5-14.5); WHITE BLOOD COUNT 9.4 K/uL (4.8-10.8)
[2018-01-02 12:45] LABS: ALB/GLOB RATIO 1.2 (1.0-2.1); ALBUMIN 4.5 g/dL (3.5-5.0); ALT/SGPT 53 U/L (9-52); AST/SGOT 40 U/L (14-36); BLOOD UREA NITROGEN 12 mg/dl (7-17); CALCIUM 9.5 mg/dL (8.4-10.2); GFR AFRICAN-AMERICAN > 60; GFR NON-AFRICAN AMERICAN > 60
[2018-01-02] MEDS ORDERED: Potassium Chloride 20 mEq ER Tab PO STA (12:59)
[2018-01-02] MEDS ORDERED: Potassium Chloride 20 mEq ER Tab PO ONE (14:35)
[2018-01-02 14:41] LABS: SQUAMOUS EPITHIAL 19 /hpf (0-5); URINE BILIRUBIN NEGATIVE (NEGATIVE); URINE BLOOD MODERATE (NEGATIVE); URINE CLARITY CLOUDY (Clear); URINE COLOR YELLOW (YELLOW); URINE GLUCOSE (UA) NEG (Normal); URINE LEUKOCYTE ESTERASE NEG Leu/uL (Negative); URINE PROTEIN NEGATIVE (NEGATIVE); URINE UROBILINOGEN 0.2-1.0 mg/dL (0.2-1.0)
[2018-01-02] MEDS ORDERED: Pneumococcal 23-Valent Vaccine IM ONE (16:05)
[2018-01-02] MEDS: Sodium Chloride 0.9% 1,000 ML IV SCH (17:27)
--- NOTE | 2018-01-02 18:41 | CP.PCM.CON ---
History of Present Illness - History of Present Illness History of Present Illness: Infectious Disease Consultation Note- asked to see this patietn at the request of ED doc for pos blood cx. HPI- Patient is a 32 year old female with PMH of HTN who originally came to ED to be evaluated last week for abd. pain watery diarrhe and nausea and vomiting and at that time she was diagnosed with enteritis and UTI and was d/c on oral cipro. Pt. states she started to feel better after that except mild residual abd. pain but she was called back to return to hospital yesterday after her blood cx was reported as gram pos rods. from ED called to discuss her case and advised to have her admitted on IV cipro pending ID and sensitivity of the Gram pos rods and check another blood cx and check UA and urine cx. Pt. states she feels fine except minimal abd. discomfort but denies any further diarrhea, denies any nausea or vomiting, denies any dysurea. denies any fever or chills, denies any cough , denies any sob, denies any chest pain. she also mentions that she has h/o H.Pylori and has been treated for it twice in past but returned pos again and s GI that she f/u with as outpatient. Review of Systems - Review of Systems Review of Systems: ROS- PLease see HPI. Past Patient History - Infectious Disease Hx of Infectious Diseases: None - Past Medical History & Family History Past Medical History?: Yes - Past Social History Smoking Status: Never Smoked Alcohol: None Drugs: Denies Home Situation {Lives}: With Family - CARDIAC Hx Cardiac Disorders: Yes Hx Hypertension: Yes - PULMONARY Hx Respiratory Disorders: No - NEUROLOGICAL Hx Neurological Disorder: No - HEENT Hx HEENT Problems: No - RENAL Hx Chronic Kidney Disease: No - ENDOCRINE/METABOLIC Hx Endocrine Disorders: No - HEMATOLOGICAL/ONCOLOGICAL Hx Blood Disorders: No - INTEGUMENTARY Hx Dermatological Problems: No - MUSCULOSKELETAL/RHEUMATOLOGICAL Hx Musculoskeletal Disorders: No Hx Falls: No - GASTROINTESTINAL Hx Gastrointestinal Disorders: No - GENITOURINARY/GYNECOLOGICAL Hx Genitourinary Disorders: No - PSYCHIATRIC Hx Psychophysiologic Disorder: No Hx Substance Use: No - SURGICAL HISTORY Hx Surgeries: Yes Hx Section: Yes (x1) - ANESTHESIA Hx Anesthesia: Yes Hx Anesthesia Reactions: No Hx Malignant Hyperthermia: No Meds Allergies/Adverse Reactions: Allergies Allergy/AdvReac Type Severity Reaction Status Date / Time No Known Allergies Allergy Verified 01/02/18 11:19 - Medications Medications: Current Medications Acetaminophen (Tylenol 325mg Tab) 650 mg PO Q6 PRN PRN Reason: Pain, moderate (4-7) Dicyclomine HCl (Bentyl) 20 mg PO BID MAYLIN Last Admin: 01/02/18 17:27 Dose: 20 mg Famotidine (Pepcid) 20 mg PO DAILY MAYLIN Hydrochlorothiazide (Microzide) 12.5 mg PO DAILY MAYLIN Ciprofloxacin (Cipro 400mg/200ml Dsw) 400 mg in 200 mls @ 200 mls/hr IVPB Q12 MAYLIN PRN Reason: Protocol Sodium Chloride (Sodium Chloride 0.9%) 1,000 mls @ 100 mls/hr IV .Q10H MAYLIN Stop: 01/05/18 22:00 Last Admin: 01/02/18 17:27 Dose: 100 mls/hr Losartan Potassium (Cozaar) 100 mg PO DAILY MAYLIN Physical Exam - Constitutional Appears: No Acute Distress - Head Exam Head Exam: ATRAUMATIC - Eye Exam Eye Exam: EOMI, PERRL - ENT Exam ENT Exam: Normal Oropharynx - Neck Exam Neck exam: Positive for: Full Rom - Respiratory Exam Respiratory Exam: Clear to Auscultation Bilateral, NORMAL BREATHING PATTERN - Cardiovascular Exam Cardiovascular Exam: RRR, +S1, +S2 - GI/Abdominal Exam GI & Abdominal Exam: Normal Bowel Sounds, Soft Additional comments: NT, ND - Extremities Exam Extremities exam: Positive for: normal inspection - Back Exam Additional comments: NO CVA tenderness B/L - Neurological Exam Neurological exam: Alert, Oriented x3 Results - Vital Signs Recent Vital Signs: Last Vital Signs Temp 98 F 01/02/18 14:42 Pulse 77 01/02/18 14:42 Resp 17 01/02/18 14:42 BP 145/76 01/02/18 14:42 Pulse Ox 99 01/02/18 14:42 - Labs Result Diagrams: 01/03/18 05:20 01/03/18 05:20 Labs: Laboratory Results - last 24 hr 01/02/18 01/02/18 01/02/18 12:00 12:00 12:00 WBC 9.4 RBC 4.48 Hgb 13.0 Hct 38.3 MCV 85.5 MCH 29.1 MCHC 34.1 RDW 13.1 Plt Count 214 MPV 10.1 Neut % (Auto) 49.8 L Lymph % (Auto) 42.6 H [place] % (Auto) 5.9 Eos % (Auto) 1.3 Baso % (Auto) 0.4 Neut # (Auto) 4.7 Lymph # (Auto) 4.0 [place] # (Auto) 0.6 Eos # (Auto) 0.1 Baso # (Auto) 0.0 Sodium 142 Potassium 3.4 L Chloride 100 Carbon Dioxide 27 Anion Gap 18 BUN 12 Creatinine 0.5 L Est GFR ( Amer) > 60 Est GFR (Non-Af Amer) > 60 Random Glucose 116 H Calcium 9.5 Total Bilirubin 0.5 AST 40 H ALT 53 H Alkaline Phosphatase 94 Total Protein 8.4 H Albumin 4.5 Globulin 3.8 Albumin/Globulin Ratio 1.2 Urine Color Yellow Urine Clarity Cloudy Urine pH 6.0 Ur Specific [place] 1.020 Urine Protein Negative Urine Glucose (UA) Neg Urine Ketones Negative Urine Blood Moderate Urine Nitrate Negative Urine Bilirubin Negative Urine Urobilinogen 0.2-1.0 Ur Leukocyte Esterase Neg Urine RBC (Auto) 4 H Urine Microscopic WBC 3 Ur Squamous Epith Cells 19 H Laboratory Results - last 72 hr 01/02/18 01/02/18 01/02/18 12:00 12:00 12:00 WBC 9.4 RBC 4.48 Hgb 13.0 Hct 38.3 MCV 85.5 MCH 29.1 MCHC 34.1 RDW 13.1 Plt Count 214 MPV 10.1 Neut % (Auto) 49.8 L Lymph % (Auto) 42.6 H [place] % (Auto) 5.9 Eos % (Auto) 1.3 Baso % (Auto) 0.4 Neut # (Auto) 4.7 Lymph # (Auto) 4.0 [place] # (Auto) 0.6 Eos # (Auto) 0.1 Baso # (Auto) 0.0 Sodium 142 Potassium 3.4 L Chloride 100 Carbon Dioxide 27 Anion Gap 18 BUN 12 Creatinine 0.5 L Est GFR ( Amer) > 60 Est GFR (Non-Af Amer) > 60 Random Glucose 116 H Hemoglobin A1c Calcium 9.5 Total Bilirubin 0.5 AST 40 H ALT 53 H Alkaline Phosphatase 94 Total Protein 8.4 H Albumin 4.5 Globulin 3.8 Albumin/Globulin Ratio 1.2 Triglycerides Cholesterol LDL Cholesterol Direct HDL Cholesterol Vitamin B12 TSH 3rd Generation Urine Color Yellow Urine Clarity Cloudy Urine pH 6.0 Ur Specific [place] 1.020 Urine Protein Negative Urine Glucose (UA) Neg Urine Ketones Negative Urine Blood Moderate Urine Nitrate Negative Urine Bilirubin Negative Urine Urobilinogen 0.2-1.0 Ur Leukocyte Esterase Neg Urine RBC (Auto) 4 H Urine Microscopic WBC 3 Ur Squamous Epith Cells 19 H 01/03/18 01/03/18 01/03/18 05:20 05:20 05:20 WBC 9.2 RBC 4.63 Hgb 13.6 Hct 39.8 MCV 85.8 MCH 29.4 MCHC 34.2 RDW 13.0 Plt Count 232 MPV Neut % (Auto) Lymph % (Auto) [place] % (Auto) Eos % (Auto) Baso % (Auto) Neut # (Auto) Lymph # (Auto) [place] # (Auto) Eos # (Auto) Baso # (Auto) Sodium 140 Potassium 3.6 Chloride 99 Carbon Dioxide 27 Anion Gap 18 BUN 7 Creatinine 0.5 L Est GFR ( Amer) > 60 Est GFR (Non-Af Amer) > 60 Random Glucose 106 H Hemoglobin A1c 6.0 Calcium 9.3 Total Bilirubin 0.8 AST 40 H ALT 51 Alkaline Phosphatase 87 Total Protein 7.9 Albumin 4.3 Globulin 3.6 Albumin/Globulin Ratio 1.2 Triglycerides 127 Cholesterol 149 LDL Cholesterol Direct 87 HDL Cholesterol 29 L Vitamin B12 478 TSH 3rd Generation 1.28 Urine Color Urine Clarity Urine pH Ur Specific [place] Urine Protein Urine Glucose (UA) Urine Ketones Urine Blood Urine Nitrate Urine Bilirubin Urine Urobilinogen Ur Leukocyte Esterase Urine RBC (Auto) Urine Microscopic WBC Ur Squamous Epith Cells Microbiology 01/02/18 12:00 Blood-Venous Blood Culture - Preliminary NO GROWTH AFTER 24 HOURS 01/02/18 11:45 Blood-Venous Blood Culture - Preliminary NO GROWTH AFTER 24 HOURS 01/02/18 12:00 Urine,Random Urine Culture - Preliminary Gram Negative Jose Microbiology 12/29/17 21:55 Blood-Venous Gram Stain - Final 12/29/17 21:34 Urine,Clean Catch Urine Culture - Final No Growth (<1,000 CFU/ML) 12/29/17 21:55 Blood-Venous Blood Culture - Preliminary 12/29/17 21:55 Blood-Venous Gram Positive Jose 12/29/17 21:34 Blood-Venous Blood Culture - Preliminary 12/29/17 21:34 Blood-Venous NO GROWTH AFTER 4 DAYS Accession No. : [id number] Patient Name / ID : MELINA MESA / [id number] Exam Date : 12/29/2017 22:43:55 ( Approved ) Study Comment : Sex / Age : F / 32Y Creator : Nya Weiss MD Dictator : Nya Weiss MD Gear Shaper : Security Checker : Nya Weiss MD Approver2 : Report Date : 12/30/2017 12:29:23 My Comment : Date of service: 12/29/2017 PROCEDURE: CT Abdomen and Pelvis with contrast HISTORY: Gen abd pain, fever, nausea, diarrhea COMPARISON: Comparison is made with the previous study dated 12/14/2015 TECHNIQUE: Contrast dose: 95 mL of Omnipaque 300. Axial and reformatted coronal and sagittal CT images of the abdomen and pelvis were obtained after IV contrast administration. Radiation dose: Total exam DLP = 850.26 mGy-cm. This CT exam was performed using one or more of the following dose reduction techniques: Automated exposure control, adjustment of the mA and/or kV according to patient size, and/or use of iterative reconstruction technique. FINDINGS: LOWER THORAX: No evidence of acute pathology. Ten linear opacity at the lingula is again noted suggestive of scar tissue. 4 millimeter calcified nodule at the left lower lobe again noted suggestive of calcified granuloma LIVER: Thyg-oq-gxweqxsd fatty liver infiltration is again noted. No evidence of acute pathology or mass lesion in the liver. The portal vein is patent. GALLBLADDER AND BILE DUCTS: No evidence of acute cholecystitis or biliary obstruction PANCREAS: Unremarkable. No gross lesion or ductal dilatation. SPLEEN: Unremarkable. ADRENALS: Unremarkable. No mass. KIDNEYS AND URETERS: Unremarkable. No hydronephrosis. No solid mass. VASCULATURE: Unremarkable. No aortic aneurysm. BOWEL: There is mild wall thickening noted in the distal small bowel loops at the right lower abdomen and right pelvis suspicious for enteritis. O evidence of high-grade bowel obstruction. APPENDIX: No evidence of appendicitis. PERITONEUM: Unremarkable. No free fluid. No free air. LYMPH NODES: Unremarkable. No enlarged lymph nodes. BLADDER: Unremarkable. REPRODUCTIVE: The uterus is mildly enlarged and heterogeneous likely contains fibroid. BONES: No acute fracture. OTHER FINDINGS: None. IMPRESSION: Mild small-bowel wall thickening noted in the right lower abdomen suggestive of enteritis. Otherwise no evidence of acute pathology in the abdomen and pelvis. Preliminary report was submitted by virtual Radiology. Assessment & Plan (1) Bacteremia Status: Acute (2) Urinary tract infection Status: Acute (3) Abdominal pain Status: Acute - Assessment and Plan (Free Text) Assessment: A/P- 32 year old female with abd pain and diarrhe and was found to have ebnteritis and UTI last week by ED doc and was d/c on oral cipro was recxalled for pos blood cx. pt. clinically states she feels much better. was on oral cipro for past few days. afebrile normal wbc count Blood cx from 12/29/2017- anerobic botle only Gram pos bacilli blood cx from 12/29/2017 negative one negative blood cx 01/02/2018- negative x 2 so far urine cx- GNR from 01/02/2018 pt's previous urine cx in [employer] from 06/2017 - esbl E.coli plan- advise to wait for ID and sensitivity of this gram pos bacilli in one anerobic bottle ( ? contaminant). check TTE r/o any vegetations. await also ID and sens of the GNR in urine cx. have contacted micro to ID these. based on these results. advise to start pt. on IV meronidazole for anerobic coverage and also bc she was found to have ? enteritis on her ct report. d/c IV cipro. start empiric IV ertapenem pending ID and sensitivity other Gram pos bacilli in blood cx and the GNR in urine cx. check H.Pylori stool antigen. All above d/w patient at length and she verbalzies full understanding of all above and agrees with above plan of care. Thank you for allowing me to take part in the care of this patient.
[2018-01-02] MEDS: Ciprofloxacin 400mg/200ml D5W 400 MG/200 ML BAG IVPB SCH (21:14)
[2018-01-03] MEDS: Sodium Chloride 0.9% 1,000 ML IV SCH ×2 (02:30→23:45)
[2018-01-03 06:33] LABS: HEMOGLOBIN 13.6 g/dL (12.0-16.0); MEAN CELL VOLUME 85.8 fl (81.0-99.0); MEAN CORPUSCULAR HEMOGLOBIN 29.4 pg (27.0-31.0); MEAN CORPUSCULAR HGB CONC 34.2 g/dL (33.0-37.0); RBC 4.63 Mil/uL (3.80-5.20); WHITE BLOOD COUNT 9.2 K/uL (4.8-10.8)
[2018-01-03 06:56] LABS: LDL CHOLESTEROL 87 mg/dL (0-129)
[2018-01-03 06:58] LABS: ALB/GLOB RATIO 1.2 (1.0-2.1); ALBUMIN 4.3 g/dL (3.5-5.0); ALT/SGPT 51 U/L (9-52); AST/SGOT 40 U/L (14-36); BLOOD UREA NITROGEN 7 mg/dl (7-17); CALCIUM 9.3 mg/dL (8.4-10.2); GFR AFRICAN-AMERICAN > 60; GFR NON-AFRICAN AMERICAN > 60; HDL CHOLESTEROL 29 MG/DL (30-70)
[2018-01-03] MEDS ORDERED: Patient's Own Med (Losartan/Hydrochlorothiazide [Losartan-Hctz 100-12.5 Mg Tab] 1 TAB) PO SCH (09:00)
[2018-01-03] MEDS: Ciprofloxacin 400mg/200ml D5W 400 MG/200 ML BAG IVPB SCH (09:54)
[2018-01-03] MEDS: metroNIDAZOLE 500mg/100ml NS 100 ML IVPB SCH (18:10)
--- NOTE | 2018-01-03 18:26 | HP ---
CHIEF COMPLAINT: The patient was recalled for positive blood culture. HISTORY OF PRESENT ILLNESS: This is a 32-year-old female, known case of hypertension and morbid obesity, who was seen in the emergency room for urinary tract infection and had blood cultures done, and the patient was discharged home with castillo Yang. The patient was recalled as the patient's blood culture result came back positive for gram-positive bacilli ID and sensitivity of which are still pending. The patient denies any specific complaint of chest pain, urinary symptoms, or any other complaints. REVIEW OF SYSTEMS: Negative for headache, dizziness, syncope, loss of consciousness, chest pain, shortness of breath, nausea, vomiting, diarrhea, constipation, any new joint or extremity pain. Review of systems of all other organ system is unremarkable. PAST MEDICAL HISTORY: Significant for hypertension. PAST SURGICAL HISTORY: Unremarkable. PERSONAL HISTORY: The patient is currently nonsmoker and nondrinker. No substance abuse. MEDICATIONS: The patient is on multiple medications, which include losartan and Bentyl. Medication reconciliation was done. ALLERGIES: THE PATIENT IS NOT ALLERGIC TO ANY MEDICATION. FAMILY HISTORY: Noncontributory. PHYSICAL EXAMINATION: GENERAL: A well-built, well-nourished, overweight 32-year-old female in no acute distress. VITAL SIGNS: Temperature afebrile, pulse 80, respirations 18, and blood pressure 136/76. HEENT: Pupils reacting to light. No nystagmus. Normocephalic, atraumatic scalp. NECK: No JVD. No thyromegaly. No lymphadenopathy. HEART EXAM: S1 and S2 normal and regular. No significant murmur, gallop, or rub. CHEST/LUNGS: Exam shows good bilateral air entry. ABDOMEN: Soft and nontender. No organomegaly. No fluid. Bowel sounds are present and normal. There is no costovertebral tenderness. No sign of acute abdomen. No guarding, no rigidity, no rebound. EXTREMITIES: No edema. No calf swelling. No tenderness . No acute ischemia. LUNCHROOM SUPERVISOR: Essentially unchanged. DIAGNOSTIC DATA: Available diagnostic data reviewed. As mentioned earlier, blood culture is positive for gram-positive bacilli. ID and sensitivity are still pending. ADMITTING IMPRESSION: Gram-positive septicemia, urinary tract infection, hypertension, and morbid obesity. PLAN: As ordered. Amanuel Cornejo MD [facility] # [id number]
[2018-01-04] MEDS: metroNIDAZOLE 500mg/100ml NS 100 ML IVPB SCH ×3 (00:07→17:27)
--- NOTE | 2018-01-04 11:09 | PN ---
DATE: 01/04/2018 SUBJECTIVE: The patient is seen and examined. Interim events noted. The patient remains in regular medical floor. The patient feels much better. No fever. No chills. No lack of appetite. No urinary symptoms. PHYSICAL EXAMINATION: GENERAL: The patient is in no acute distress. VITAL SIGNS: Stable. HEART: S1 and S2. Normal and regular. LUNGS: Good bilateral air exchange. ABDOMEN: Soft and nontender. EXTREMITIES: No edema. No calf swelling. No tenderness. No acute ischemia. STEEL PAN FORM PLACING SUPERVISOR: Essentially unchanged. BACK: There is no CVA tenderness. LABORATORY DATA: Available diagnostic data reviewed. Urine culture also shows the same gram-positive rods on the ID and sensitivity of both organism from blood culture on in emergency room and in urine while this admission is still pending. ASSESSMENT AND PLAN: Overall, clinically the patient is stable. Plan as ordered. Amanuel Cornejo MD
--- NOTE | 2018-01-04 14:16 | CARD ---
APPROVED REPORT Date of service: 01/04/2018 EXAM: Two-dimensional and M-mode echocardiogram with Doppler and color Doppler. Other Information Quality : GoodRhythm : NSR INDICATION Infection: 2D DIMENSIONS IVSd1.11 (0.7-1.1cm)LVDd4.14 (3.9-5.9cm) LVOT Diameter2.23 (1.8-2.4cm)PWd0.97 (0.7-1.1cm) IVSs1.35 (0.8-1.2cm)LVDs2.67 (2.5-4.0cm) FS (%) 35.4 %PWs1.31 (0.8-1.2cm) M-Mode DIMENSIONS Left Atrium (MM)3.68 (2.5-4.0cm)IVSd1.24 (0.7-1.1cm) Aortic Root2.79 (2.2-3.7cm)LVDd5.21 (4.0-5.6cm) Aortic Cusp Exc.1.85 (1.5-2.0cm)PWd0.94 (0.7-1.1cm) IVSs1.50 cmFS (%) 43 % LVDs2.97 (2.0-3.8cm)PWs1.47 cm Aortic Valve AoV Peak Lbvqmehe634.2cm/sAoV VTI22.3cmAO Peak GR.6mmHg LVOT Peak Bhcaswde448.5cm/sLVOT VTI19.46cmAO Mean GR.4mmHg LENNY (VMAX)1.46ld8FLG (VTI)1.88cm2 Mitral Valve MV E Qkjxwdvo95.8cm/sMV DECEL [id number] A Ytxnldfq55.2cm/s MV TSL84yoI/A ratio1.2MVA (PHT)2.95cm2 TDI Lateral E' Peak V13.36cm/sMedial E' Peak V8.47cm/sE/Lateral E'4.3 E/Medial E'6.8 Pulmonary Valve PV Peak Otfzompg820.8cm/s LEFT VENTRICLE The left ventricle is normal size. There is normal left ventricular wall thickness. The left ventricular function is normal. The left ventricular ejection fraction is within the normal range. LVEF 65% There is normal LV segmental wall motion. The left ventricular diastolic function is normal. There is no ventricular septal defect visualized. There is no left ventricular aneurysm. There is no mass noted in the left ventricle. RIGHT VENTRICLE The right ventricle is normal size. There is normal right ventricular wall thickness. The right ventricular systolic function is normal. ATRIA The left atrium size is normal. The right atrium size is normal. The interatrial septum is intact with no evidence for an atrial septal defect. AORTIC VALVE The aortic valve is normal in structure. No aortic regurgitation is present. There is no aortic valvular stenosis. There is no aortic valvular vegetation. MITRAL VALVE The mitral valve is normal in structure. There is no evidence of mitral valve prolapse. There is no mitral valve stenosis. There is no mitral valve regurgitation noted. TRICUSPID VALVE The tricuspid valve is normal in structure. There is no tricuspid valve regurgitation noted. There is no tricuspid valve prolapse or vegetation. There is no tricuspid valve stenosis. PULMONIC VALVE The pulmonary valve is normal in structure. There is no pulmonic valvular regurgitation. There is no pulmonic valvular stenosis. GREAT VESSELS The aortic root is normal in size. The IVC is normal in size and collapses >50% with inspiration. PERICARDIAL EFFUSION The pericardium appears normal. There is no pleural effusion. <Conclusion> The left ventricle is normal size. There is normal left ventricular wall thickness. The left ventricular function is normal. The left ventricular ejection fraction is within the normal range. LVEF 65% The aortic valve is normal in structure. The mitral valve is normal in structure.
[2018-01-05] MEDS: metroNIDAZOLE 500mg/100ml NS 100 ML IVPB SCH ×2 (00:35→11:31)
[2018-01-05] MEDS: Sodium Chloride 0.9% 1,000 ML IV SCH ×2 (02:58→04:30)
[2018-01-05 07:19] LABS: BASO % 0.4 % (0.0-2.0); EOS # 0.2 K/uL (0.0-0.7); EOS % 1.8 % (0.0-4.0); HEMOGLOBIN 13.5 g/dL (12.0-16.0); LYMPH # 3.8 K/uL (1.0-4.3); MEAN CELL VOLUME 86.4 fl (81.0-99.0); MEAN CORPUSCULAR HEMOGLOBIN 28.7 pg (27.0-31.0); MEAN CORPUSCULAR HGB CONC 33.3 g/dL (33.0-37.0); MEAN PLATELET VOLUME 9.8 fl (7.2-11.7); MONO # 0.6 K/uL (0.0-0.8); MONO % 6.1 % (0.0-10.0); NEUT # 5.6 K/uL (1.8-7.0); NEUT % 54.7 % (50.0-75.0); RBC 4.69 Mil/uL (3.80-5.20); RED CELL DISTRIBUTION WIDTH 13.2 % (11.5-14.5); WHITE BLOOD COUNT 10.3 K/uL (4.8-10.8)
--- NOTE | 2018-01-05 09:55 | CP.PCM.PN ---
Subjective - Date & Time of Evaluation Date of Evaluation: 01/05/18 Time of Evaluation: 09:55 - Subjective Subjective: ID Note- Pt. seen and examined today. pt. states she feels better she c/o slight burning with urination but less than before . she denies any abd. pain or any fever. she does state she has developed loose stools today but not foul smelling. Objective - Vital Signs/Intake and Output Vital Signs (last 24 hours): Temp Pulse Resp BP Pulse Ox 98 F 72 20 140/76 98 01/05/18 09:00 01/05/18 09:00 01/05/18 09:00 01/05/18 09:00 01/05/18 09:00 - Medications Medications: Current Medications Acetaminophen (Tylenol 325mg Tab) 650 mg PO Q6 PRN PRN Reason: Pain, moderate (4-7) Last Admin: 01/03/18 09:46 Dose: 650 mg Dicyclomine HCl (Bentyl) 20 mg PO BID [facility] Last Admin: 01/04/18 17:28 Dose: 20 mg Famotidine (Pepcid) 20 mg PO DAILY [facility] Last Admin: 01/04/18 10:03 Dose: 20 mg Hydrochlorothiazide (Microzide) 12.5 mg PO DAILY [facility] Last Admin: 01/04/18 10:03 Dose: 12.5 mg Sodium Chloride (Sodium Chloride 0.9%) 1,000 mls @ 100 mls/hr IV .Q10H [facility] Stop: 01/05/18 22:00 Last Admin: 01/05/18 04:30 Dose: Not Given Metronidazole (Flagyl 500mg/100ml Ns) 100 mls @ 100 mls/hr IVPB Q8 [facility] PRN Reason: Protocol Last Admin: 01/05/18 00:35 Dose: 100 mls/hr Ertapenem 1 gm/ Sodium (Chloride) 100 mls @ 100 mls/hr IVPB DAILY [facility] PRN Reason: Protocol Last Admin: 01/04/18 10:07 Dose: 100 mls/hr Losartan Potassium (Cozaar) 100 mg PO DAILY [facility] Last Admin: 01/04/18 10:03 Dose: 100 mg - Labs Labs: - Additional Findings Additional findings: Constitutional Appears: No Acute Distress - Head Exam Head Exam: ATRAUMATIC - Eye Exam Eye Exam: EOMI, PERRL - ENT Exam ENT Exam: Normal Oropharynx - Neck Exam Neck exam: Positive for: Full Rom - Respiratory Exam Respiratory Exam: Clear to Auscultation Bilateral, NORMAL BREATHING PATTERN - Cardiovascular Exam Cardiovascular Exam: RRR, +S1, +S2 - GI/Abdominal Exam GI & Abdominal Exam: Normal Bowel Sounds, Soft Additional comments: NT, ND - Extremities Exam Extremities exam: Positive for: normal inspection - Back Exam Additional comments: NO CVA tenderness B/L - Neurological Exam Neurological exam: Alert, Oriented x 3 Laboratory Results - last 72 hr 01/02/18 01/02/18 01/02/18 12:00 12:00 12:00 WBC 9.4 RBC 4.48 Hgb 13.0 Hct 38.3 MCV 85.5 MCH 29.1 MCHC 34.1 RDW 13.1 Plt Count 214 MPV 10.1 Neut % (Auto) 49.8 L Lymph % (Auto) 42.[address] [place] % (Auto) 5.9 Eos % (Auto) 1.3 Baso % (Auto) 0.4 Neut # (Auto) 4.7 Lymph # (Auto) 4.0 [place] # (Auto) 0.6 Eos # (Auto) 0.1 Baso # (Auto) 0.0 Sodium 142 Potassium 3.4 L Chloride 100 Carbon Dioxide 27 Anion Gap 18 BUN 12 Creatinine 0.5 L Est GFR ( Amer) > 60 Est GFR (Non-Af Amer) > 60 Random Glucose 116 H Hemoglobin A1c Calcium 9.5 Total Bilirubin 0.5 AST 40 H ALT 53 H Alkaline Phosphatase 94 Total Protein 8.4 H Albumin 4.5 Globulin 3.8 Albumin/Globulin Ratio 1.2 Triglycerides Cholesterol LDL Cholesterol Direct HDL Cholesterol Vitamin B12 TSH 3rd Generation Urine Color Yellow Urine Clarity Cloudy Urine pH 6.0 Ur Specific [place] 1.020 Urine Protein Negative Urine Glucose (UA) Neg Urine Ketones Negative Urine Blood Moderate Urine Nitrate Negative Urine Bilirubin Negative Urine Urobilinogen 0.2-1.0 Ur Leukocyte Esterase Neg Urine RBC (Auto) 4 H Urine Microscopic WBC 3 Ur Squamous Epith Cells 19 H 01/03/18 01/03/18 01/03/18 05:20 05:20 05:20 WBC 9.2 RBC 4.63 Hgb 13.6 Hct 39.8 MCV 85.8 MCH 29.4 MCHC 34.2 RDW 13.0 Plt Count 232 MPV Neut % (Auto) Lymph % (Auto) [place] % (Auto) Eos % (Auto) Baso % (Auto) Neut # (Auto) Lymph # (Auto) [place] # (Auto) Eos # (Auto) Baso # (Auto) Sodium 140 Potassium 3.6 Chloride 99 Carbon Dioxide 27 Anion Gap 18 BUN 7 Creatinine 0.5 L Est GFR ( Amer) > 60 Est GFR (Non-Af Amer) > 60 Random Glucose 106 H Hemoglobin A1c 6.0 Calcium 9.3 Total Bilirubin 0.8 AST 40 H ALT 51 Alkaline Phosphatase 87 Total Protein 7.9 Albumin 4.3 Globulin 3.6 Albumin/Globulin Ratio 1.2 Triglycerides 127 Cholesterol 149 LDL Cholesterol Direct 87 HDL Cholesterol 29 L Vitamin B12 478 TSH 3rd Generation 1.28 Urine Color Urine Clarity Urine pH Ur Specific [place] Urine Protein Urine Glucose (UA) Urine Ketones Urine Blood Urine Nitrate Urine Bilirubin Urine Urobilinogen Ur Leukocyte Esterase Urine RBC (Auto) Urine Microscopic WBC Ur Squamous Epith Cells 01/05/18 06:17 WBC 10.3 RBC 4.69 Hgb 13.5 Hct 40.5 MCV 86.4 MCH 28.7 MCHC 33.3 RDW 13.2 Plt Count 249 MPV 9.8 Neut % (Auto) 54.7 Lymph % (Auto) 37.0 [place] % (Auto) 6.1 Eos % (Auto) 1.8 Baso % (Auto) 0.4 Neut # (Auto) 5.6 Lymph # (Auto) 3.8 [place] # (Auto) 0.6 Eos # (Auto) 0.2 Baso # (Auto) 0.0 Sodium Potassium Chloride Carbon Dioxide Anion Gap BUN Creatinine Est GFR ( Amer) Est GFR (Non-Af Amer) Random Glucose Hemoglobin A1c Calcium Total Bilirubin AST ALT Alkaline Phosphatase Total Protein Albumin Globulin Albumin/Globulin Ratio Triglycerides Cholesterol LDL Cholesterol Direct HDL Cholesterol Vitamin B12 TSH 3rd Generation Urine Color Urine Clarity Urine pH Ur Specific [place] Urine Protein Urine Glucose (UA) Urine Ketones Urine Blood Urine Nitrate Urine Bilirubin Urine Urobilinogen Ur Leukocyte Esterase Urine RBC (Auto) Urine Microscopic WBC Ur Squamous Epith Cells Microbiology 01/02/18 12:00 Blood-Venous Blood Culture - Preliminary NO GROWTH AFTER 48 HOURS 01/02/18 11:45 Blood-Venous Blood Culture - Preliminary NO GROWTH AFTER 48 HOURS 01/02/18 12:00 Urine,Random Urine Culture - Final Escherichia Coli Assessment and Plan (1) Bacteremia Status: Acute (2) Urinary tract infection Status: Acute (3) Abdominal pain Status: Acute - Assessment and Plan (Free Text) Assessment: /P- 32 year old female with abd pain and diarrhe and was found to have ebnteritis and UTI last week by ED doc and was d/c on oral cipro was recxalled for pos blood cx. pt. clinically states she feels much better. afebrile normal wbc count Blood cx from 12/29/2017- anerobic botle only Gram pos bacilli ( fusobacterium ) sens to PCN as per report. blood cx from 12/29/2017 negative one negative blood cx 01/02/2018- negative x 2 so far urine cx- ESBL e.coli pt's previous urine cx in [facility] from 06/2017 - esbl E.coli TTE- no vegetations as per report. plan- has completed so far 3 days of IV ertapenem for e.coli ESBL UTI. advise 4 more days. advise to also place pt. on probiotics while on IV and oral abx. as for the fusobacterium in 1 blood cx , it can be a contaminant as it's part of the normal oral deanne. however asince she will get picc line and will beon IV abx already for her ESBL uti, advise to also put her on IV clindamycin 600 mg BID for 10 days the fusobacterium. another option would be to d/c ertapanem and place her on IV meropnem since that would treat both the e.coli ESBl and the fusobacterium. would advise 1 gram IV meropenem for 7-10 days. check repeat blood cx after completion of this abx. check repet UA and urine cx after completion of the antibiotics. All above d/w patient at length and she verbalizes full understanding of all above and agrees with above plan of care. also discussed all above with ACCOUNT SUPPORT REP radha.
--- NOTE | 2018-01-05 11:57 | PN ---
DATE: 01/05/2018 SUBJECTIVE: The patient is seen and examined. Interim events noted. Consults noted and appreciated. Infectious disease followup intervention noted and appreciated. The patient remains in regular medical floor. Antibiotics were switched to cover ESBL E. coli that grew in culture for the urine. The patient feels okay. Denies any urinary symptoms. No burning. No frequency. No other complaint of chest pain or shortness of breath. PHYSICAL EXAMINATION: GENERAL: The patient is in no acute distress. VITAL SIGNS: Stable. HEART: S1 and S2. Normal and regular. LUNGS: Good bilateral air exchange. ABDOMEN: Soft and nontender. EXTREMITIES: No edema. No calf swelling. No tenderness. No acute ischemia. LABORATORY DATA: Available diagnostic data reviewed. ASSESSMENT AND PLAN: Overall, the patient's general medical condition is stable. Urine culture shows Escherichia coli which is ESBL positive. Plan as ordered. Case and plan discussed with the patient. Amanuel Cornejo MD
[2018-01-05] MEDS ORDERED: Meropenem 1 GM in Sodium Chloride 0.9% 100 ML IVPB ONE (13:51)
[2018-01-05] MEDS ORDERED: LIDOCAINE 2% 10ML 20 MG/ML VIAL IJ ONE (15:13)
--- NOTE | 2018-01-05 15:24 | PCM.SURG1 ---
Surgeon's Initial Post Op Note - Surgeon's Notes Surgeon: Pawan Johnson MD Milk Wagon Driver: NONE Type of Anesthesia: Local Pre-Operative Diagnosis: Infection, UTI Operative Findings: Patent right basilic vein Post-Operative Diagnosis: Infection, UTI Operation Performed: Single lumen picc right basilic vein, 33 cm. Tip is in the SVC. Specimen/Specimens Removed: NONE Estimated Blood Loss: EBL {In ML}: 2 Blood Products Given: N/A Drains Used: No Drains Post-Op Condition: Fair Date of Surgery/Procedure: 01/05/18 Time of Surgery/Procedure: 15:20
[2018-01-05 15:34] VITALS: RESP 18
[2018-01-05 16:48] VITALS: BP 111/66; PULSE 73; TEMP 97.9; O2SAT 97
--- NOTE | 2018-01-06 07:21 | CP.PCM.DIS ---
Provider - Provider Date of Admission: 01/02/18 13:06 Attending physician: Amanuel Cornejo MD Time Spent in preparation of Discharge (in minutes): 20 Diagnosis - Discharge Diagnosis (1) Bacteremia Status: Resolved (2) Urinary tract infection Status: Acute Hospital Course - Lab Results Lab Results: Micro Results 01/02/18 12:00 Blood-Venous Blood Culture - Preliminary NO GROWTH AFTER 3 DAYS 01/02/18 11:45 Blood-Venous Blood Culture - Preliminary NO GROWTH AFTER 3 DAYS 01/02/18 12:00 Urine,Random Urine Culture - Final Escherichia Coli Most Recent Lab Values WBC 10.3 K/uL (4.8-10.8) 01/05/18 06:17 RBC 4.69 Mil/uL (3.80-5.20) 01/05/18 06:17 Hgb 13.5 g/dL (12.0-16.0) 01/05/18 06:17 Hct 40.5 % (34.0-47.0) 01/05/18 06:17 MCV 86.4 fl (81.0-99.0) 01/05/18 06:17 MCH 28.7 pg (27.0-31.0) 01/05/18 06:17 MCHC 33.3 g/dL (33.0-37.0) 01/05/18 06:17 RDW 13.2 % (11.5-14.5) 01/05/18 06:17 Plt Count 249 K/uL (130-400) 01/05/18 06:17 MPV 9.8 fl (7.2-11.7) 01/05/18 06:17 Neut % (Auto) 54.7 % (50.0-75.0) 01/05/18 06:17 Lymph % (Auto) 37.0 % (20.0-40.0) 01/05/18 06:17 [place] % (Auto) 6.1 % (0.0-10.0) 01/05/18 06:17 Eos % (Auto) 1.8 % (0.0-4.0) 01/05/18 06:17 Baso % (Auto) 0.4 % (0.0-2.0) 01/05/18 06:17 Neut # (Auto) 5.6 K/uL (1.8-7.0) 01/05/18 06:17 Lymph # (Auto) 3.8 K/uL (1.0-4.3) 01/05/18 06:17 [place] # (Auto) 0.6 K/uL (0.0-0.8) 01/05/18 06:17 Eos # (Auto) 0.2 K/uL (0.0-0.7) 01/05/18 06:17 Baso # (Auto) 0.0 K/uL (0.0-0.2) 01/05/18 06:17 Sodium 140 mmol/l (132-148) 01/03/18 05:20 Potassium 3.6 MMOL/L (3.6-5.0) 01/03/18 05:20 Chloride 99 mmol/L (98-107) 01/03/18 05:20 Carbon Dioxide 27 mmol/L (22-30) 01/03/18 05:20 Anion Gap 18 (10-20) 01/03/18 05:20 BUN 7 mg/dl (7-17) 01/03/18 05:20 Creatinine 0.5 mg/dl (0.7-1.2) L 01/03/18 05:20 Est GFR ( Amer) > 60 01/03/18 05:20 Est GFR (Non-Af Amer) > 60 01/03/18 05:20 Random Glucose 106 mg/dL (65-105) H 01/03/18 05:20 Hemoglobin A1c 6.0 % (4.2-6.5) 01/03/18 05:20 Calcium 9.3 mg/dL (8.4-10.2) 01/03/18 05:20 Total Bilirubin 0.8 mg/dl (0.2-1.3) 01/03/18 05:20 AST 40 U/L (14-36) H 01/03/18 05:20 ALT 51 U/L (9-52) 01/03/18 05:20 Alkaline Phosphatase 87 U/L (38-126) 01/03/18 05:20 Total Protein 7.9 G/DL (6.3-8.2) 01/03/18 05:20 Albumin 4.3 g/dL (3.5-5.0) 01/03/18 05:20 Globulin 3.6 gm/dL (2.2-3.9) 01/03/18 05:20 Albumin/Globulin Ratio 1.2 (1.0-2.1) 01/03/18 05:20 Triglycerides 127 mg/DL (0-149) 01/03/18 05:20 Cholesterol 149 mg/dL (0-199) 01/03/18 05:20 LDL Cholesterol Direct 87 mg/dL (0-129) 01/03/18 05:20 HDL Cholesterol 29 MG/DL (30-70) L 01/03/18 05:20 Vitamin B12 478 pg/mL (239-931) 01/03/18 05:20 TSH 3rd Generation 1.28 mIU/ML (0.46-4.68) 01/03/18 05:20 Urine Color Yellow (YELLOW) 01/02/18 12:00 Urine Clarity Cloudy (Clear) 01/02/18 12:00 Urine pH 6.0 (5.0-8.0) 01/02/18 12:00 Ur Specific [place] 1.020 (1.003-1.030) 01/02/18 12:00 Urine Protein Negative mg/dL (NEGATIVE) 01/02/18 12:00 Urine Glucose (UA) Neg mg/dL (Normal) 01/02/18 12:00 Urine Ketones Negative mg/dL (NEGATIVE) 01/02/18 12:00 Urine Blood Moderate (NEGATIVE) 01/02/18 12:00 Urine Nitrate Negative (NEGATIVE) 01/02/18 12:00 Urine Bilirubin Negative (NEGATIVE) 01/02/18 12:00 Urine Urobilinogen 0.2-1.0 mg/dL (0.2-1.0) 01/02/18 12:00 Ur Leukocyte Esterase Neg [place]/uL (Negative) 01/02/18 12:00 Urine RBC (Auto) 4 /hpf (0-3) H 01/02/18 12:00 Urine Microscopic WBC 3 /hpf (0-5) 01/02/18 12:00 Ur Squamous Epith Cells 19 /hpf (0-5) H 01/02/18 12:00 - Hospital Course Hospital Course: 32 YO female with PMHx of HTN was admitted for bacteremia and UTI. ID was consulted and pt was treated with IB abx, subsequent blood cultures have remain neg, likely initial blood work was a contamination. Urine cultures sig for ESBL , per ID recs will need treatment with 10 days of IV Meropenem. PICC line placed today, pt cleared by ID to be d/c home. Will d/c pt home with 10 day of IV abx, with home nurse for infusion. Follow up with PMD in 1 week, repeat blood culture, UA and culture post abx treatment. Discharge Exam - Head Exam Head Exam: ATRAUMATIC - Eye Exam Eye Exam: EOMI - ENT Exam ENT Exam: Mucous Membranes Moist - Respiratory Exam Respiratory Exam: Clear to PA & Lateral. absent: Wheezes - Cardiovascular Exam Cardiovascular Exam: REGULAR RHYTHM, +S1, +S2 - GI/Abdominal Exam GI & Abdominal Exam: Normal Bowel Sounds, Soft. absent: Tenderness - Extremities Exam Extremities exam: normal inspection - Back Exam Back exam: NORMAL INSPECTION. absent: CVA tenderness (L), CVA tenderness (R) - Neurological Exam Neurological exam: Alert Discharge Plan - Discharge Medications Prescriptions: Lactobacillus Acidophilus [Bacid Acidophilus] 1 cap PO DAILY #10 cap Meropenem IV 1 gm in NS [Merrem IV 1 gm Premix] 1 gm IVPB DAILY #10 bag - Follow Up Plan Condition: STABLE Disposition: HOME/ ROUTINE Instructions: How to Care for a Central Line Catheter, Peripherally-Inserted Central Catheter (DC), Urinary Tract Infection in Women (DC), Sepsis (DC) Additional Instructions: follow up with primary MD 1 week Referrals: Maxwell Sun MD [Staff Provider] - Baudilio Andrea MD [Family Provider] -
--- NOTE | 2018-01-07 12:17 | VASCULAR ---
PROCEDURE: Date of procedure: 01/05/2018 Procedure: 1. Placement of a right arm PICC with ultrasound and fluoroscopic guidance, CPT 14645 2. PICC tip confirmation with spot radiograph and is in the superior vena cava Medications: 1 percent lidocaine Total Fluoro time: 1.9 seconds Radiation: 0.3 MGy EBL: 2 cc HISTORY: Infection requiring long-term IV antibiotics TECHNIQUE: Following informed consent and procedure time-out, the patient was placed supine on the interventional table and the right arm prepped and draped in the usual sterile fashion. Ultrasound showed a patent and compressible right basilic vein. After the skin was anesthetized with lidocaine, the basilic vein was accessed with micro micropuncture technique using ultrasound guidance. A guidewire was then advanced under fluoroscopic guidance into the superior vena cava. An image documenting ultrasound guidance for vascular access was permanently saved. The length of the single-lumen 4 [place] PICC was trimmed to 33 centimeters and advanced through a peel-away sheath. The PICC was position with tip of PICC confirm a spot radiograph the superior vena cava. The PICC was secured to the patient's skin. The PICC was flushed. A biopatch and sterile dressing was applied. IMPRESSION: Placement of a single-lumen 4 [place] PICC trimmed to 33 centimeters via right basilic vein. The tip of the PICC is confirmed with spot radiograph and is in the superior vena cava.
== END 2018-01-05 18:30 | disposition home health service (06) | DRG 901 ==
LOC: H.ER 11:14 → H.ERHOLD 13:06 → H.MEDSURG1 15:17
PROVIDERS: ADMIT Internal Medicine; ATTEND Internal Medicine
PROC: 3E0234Z Introduction of Serum, Toxoid and Vaccine into Muscle, Percutaneous Approach (ICD-10-PCS; 2018-01-02)
PROC: 3E04329 Introduction of Other Anti-infective into Central Vein, Percutaneous Approach (ICD-10-PCS; principal; 2018-01-05)
PROC: 02HV33Z Insertion of Infusion Device into Superior Vena Cava, Percutaneous Approach (ICD-10-PCS; 2018-01-05)
PROC: B518YZA Fluoroscopy of Superior Vena Cava using Other Contrast, Guidance (ICD-10-PCS; 2018-01-05)
DX: A41.89 Other specified sepsis (principal); N39.0 Urinary tract infection, site not specified; B96.20 Unspecified Escherichia coli [E. coli] as the cause of diseases classified elsewhere; Z16.12 Extended spectrum beta lactamase (ESBL) resistance; I10 Essential (primary) hypertension; E66.01 Morbid (severe) obesity due to excess calories; Z68.34 Body mass index [BMI] 34.0-34.9, adult; Z23 Encounter for immunization; Z98.891 History of uterine scar from previous surgery

== ENCOUNTER 2018-05-31 16:28 | Emergency (ER) | payer OTHER ==
[2018-05-31 16:29] VITALS: BMI 34.7
[2018-05-31 16:47] VITALS: BP 149/88; RESP 16; TEMP 98.6; O2SAT 98
--- NOTE | 2018-05-31 18:41 | ED PDOC ---
HPI: Influenza Time Seen by Provider: 05/31/18 17:15 Chief Complaint: Flu-like Symptoms Chief Complaint (Provider): Flu-like Symptoms History Per: Patient Exam Limitations: no limitations Onset/Duration Of Symptoms: Days (x3 days) Symptoms include: fever, headache, sore throat, cough, nasal congestion. denies: vomiting, diarrhea, chest pain Additional complaint(s):: Patient is a 33 year old female who complains of tactile fever, chills, cough, congestions, sore throat and dysuria for past x3 days. Patient states she has been taking ibuprofen at home and her last dose was this morning. She reports to have intermittent nausea, headache, and cramping sensation in lower abdomen. Patient does have a history of UTI with similar symptoms. Her Tmax was 100.2 orally. Otherwise: (-) fever, (-) chills, (-) chest pain, (-) dyspnea, (-) vomiting, (-) diarrhea, (-) shortness of breath, (-) ear pain, (-) dizziness, (- ) vaginal bleeding, (-) vaginal discharge, (-) concern for STD, (-) hemoptysis, (-) upper back pain, (-) travel, (-) recent prolonged immobility. PMD: Baudilio Andrea LMP: may 28 2018 Past Medical History Reviewed: Historical Data, Nursing Documentation, Vital Signs Vital Signs: Last Vital Signs Temp 98.6 F 05/31/18 16:44 Pulse 103 H 05/31/18 16:44 Resp 16 05/31/18 16:44 BP 149/88 05/31/18 16:44 Pulse Ox 98 05/31/18 16:44 - Medical History PMH: HTN Other PMH: pre diabetic - Surgical History Surgical History: - Family History Family History: States: Unknown Family Hx - Social History Current smoker - smoking cessation education provided: No Alcohol: None Drugs: Denies - Home Medications Home Medications: Ambulatory Orders Medication Instructions Recorded RX: Losartan/Hydrochlorothiazide 1 tab PO DAILY 12/14/16 [Losartan-Hctz 100-12.5 mg Tab] RX: Dicyclomine [Bentyl] 20 mg PO BID #30 tab 12/30/17 RX: Famotidine [Pepcid] 20 mg PO DAILY 01/02/18 Lactobacillus Acidophilus [Bacid 1 cap PO DAILY #10 cap 01/05/18 Acidophilus] RX: Meropenem IV 1 gm in NS 1 gm IVPB DAILY #10 bag 01/05/18 [Merrem IV 1 gm Premix] Acetaminophen [Acetaminophen 8 650 mg PO Q8 PRN #21 tablet.er 05/31/18 Hour] RX: Naproxen 500 mg PO BID PRN #20 tab 05/31/18 RX: Promethazine DM [Phenergan DM 5 ml PO Q6 PRN #150 ml 05/31/18 Syrup] - Allergies Allergies/Adverse Reactions: Allergies Allergy/AdvReac Type Severity Reaction Status Date / Time No Known Allergies Allergy Verified 01/02/18 11:19 Review of Systems ROS Statement: Except As Marked, All Systems Reviewed And Found Negative Constitutional: Positive for: Fever, Chills ENT: Positive for: Nose Congestion, Throat Pain. Negative for: Ear Pain Cardiovascular: Negative for: Chest Pain Respiratory: Positive for: Cough. Negative for: Shortness of Breath Gastrointestinal: Positive for: Nausea, Abdominal Pain. Negative for: Vomiting, Diarrhea Genitourinary Female: Positive for: Dysuria. Negative for: Vaginal Discharge, Vaginal Bleeding Neurological: Positive for: Headache. Negative for: Dizziness Physical Exam - Reviewed Nursing Documentation Reviewed: Yes Vital Signs Reviewed: Yes - Physical Exam Comments: GENERAL APPEARANCE: Patient is awake, alert, oriented x 3, in no acute distress. Resting comfortably. SKIN: Warm, dry; (-) cyanosis. EYES: (-) conjunctival pallor. ENMT: TM: nonbulging, nonerythematous bilaterally. Mucous membranes moist. Airway patent: (-) stridor. Pharynx: clear, uvula midline (+)faint erythema (- ) swelling, (-) exudate. NECK: Supple, FROM (-) tenderness, (-) stiffness, (-) lymphadenopathy. CHEST AND RESPIRATORY: (-) rhonchi, (-) rales, (-) wheezes, (-) pleural rub; breath sounds equal bilaterally. Respirations even and nonlabored. HEART AND CARDIOVASCULAR: (-) irregularity ABDOMEN AND GI: (+)mild suprapubic tenderness (-) distention (-) guarding (-) rebound (-) CVA tenderness EXTREMITIES: (-) deformity; (-) edema. NEURO AND PSYCH: Mental status as above. Cranial nerves grossly intact; strength symmetric. Gait: steady. Speech: clear. (-) facial asymmetry (-) aphasia Medical Decision Making Medical Decision Making: Time: 1809 Impression: dysuria, concern for UTI; cough, sore throat, likely viral syndrome Plan: -- test --toradol 30 mg IM --pyridium 200 mg PO --throat culture --urine culture --rapid strep group A antigen --Influenza A B --Urinalysis 2030 Rapid Strep: Negative Influenza: Negative U/A (-) evidence of UTI Repeat HR: 88 On re-evaluation, patient reports improvement of symptoms. On exam, patient remains AAOx3, in no acute distress. Vitals stable. Lab/Diagnostic results d/w the patient in great detail using tube washer [id number]. Diagnosis of cough, sore throat, viral URI; dysuria d/w the patient. Based on history, exam and diagnostic results, plan will be for outpatient follow up. Patient instructed to follow-up with pmd / referral provided / the clinic in 1- 2 days without fail. Advised to take medication as prescribed. Return to the emergency room at any time for any new or worsening symptoms. Patient states she fully agrees with and understands discharge instructions. States that she agrees with the plan and disposition. Verbalized and repeated discharge instructions and plan. I have given the patient opportunity to ask any additional questions. Scribe Attestation: Documented by Mark Garcia, acting as a scribe for Christina Lee Provider Scribe Attestation: All medical record entries made by the Scribe were at my direction and personally dictated by me. I have reviewed the chart and agree that the record accurately reflects my personal performance of the history, physical exam, medical decision making, and the department course for this patient. I have also personally directed, reviewed, and agree with the discharge instructions and disposition. - Laboratory Results Urine POC: Negative - ECG O2 Sat by Pulse Oximetry: 98 (RA) Pulse Ox Interpretation: Normal Disposition - Clinical Impression Clinical Impression: Cough, Sore throat, Dysuria, Viral respiratory illness - Patient ED Disposition Is Patient to be Admitted: No Counseled Patient/Family Regarding: Studies Performed, Diagnosis, Need For Followup, Rx Given - Disposition Referrals: Baudilio Andrea MD [Family Provider] - Disposition: Routine/Home Disposition Time: 20:35 Condition: STABLE Additional Instructions: La atencin mdica de emergencia que recibi hoy se dirigi a yesenia sntomas agudos. Si le recetaron algn medicamento, llnelo y tmelo segn las indicaciones. Los sntomas pueden tardar varios live en resolverse. Regrese al Departamento de Emergencias si yesenia sntomas empeoran, no mejoran o si tiene otros problemas. Comunquese con armas mdico dentro de 2 live para jan nueva evaluacin y zakia un seguimiento o llame a dallas de los mdicos / clnicas a los que manzo sido referido y que figuran en el formulario de Informacin de visita al paciente que se incluye en armas paquete de angel. Lleve todos los documentos que le entregaron al momento del angel junto con todos los medicamentos que est tomando para armas visita de seguimiento. Nuestro tratamiento no puede reemplazar la atencin mdica continua por parte de un proveedor de atencin primaria (PCP) fuera del departamento de emergencias. Prescriptions: Acetaminophen [Acetaminophen 8 Hour] 650 mg PO Q8 PRN #21 tablet.er PRN Reason: Fever >100.4 F RX: Naproxen 500 mg PO BID PRN #20 tab PRN Reason: Pain, Moderate (4-7) RX: Promethazine DM [Phenergan DM Syrup] 5 ml PO Q6 PRN #150 ml PRN Reason: Cough Instructions: Viral Pharyngitis, Cough in Adults, Viral Upper Respiratory Infection, Adult (DC), Dysuria, Adult (DC), Viral Syndrome (DC) Forms: [employer] (Moroccan), [facility] ED School/Work Excuse Print Language: MALAWIAN - POA Present On Arrival: None Results - Lab Results Lab Results: 05/31/18 05/31/18 05/31/18 18:43 18:43 18:43 Urine Color Yellow Urine Clarity Slighty-cloudy Urine pH 6.0 Ur Specific [place] 1.015 Urine Protein Negative Urine Glucose (UA) Neg Urine Ketones Negative Urine Blood Negative Urine Nitrate Negative Urine Bilirubin Negative Urine Urobilinogen 0.2-1.0 Ur Leukocyte Esterase Neg Urine RBC (Auto) 2 Urine Microscopic WBC 1 Ur Squamous Epith Cells 8 H Urine Bacteria Rare Influenza Typ A,B (EIA) Negative for flu a/b Grp A Beta Strep Ag Negative
[2018-05-31 18:55] LABS: SQUAMOUS EPITHIAL 8 /hpf (0-5); URINE BACTERIA RARE (<OCC); URINE BILIRUBIN NEGATIVE (NEGATIVE); URINE BLOOD NEGATIVE (NEGATIVE); URINE CLARITY SLIGHTY-CLOUDY (Clear); URINE COLOR YELLOW (YELLOW); URINE GLUCOSE (UA) NEG (NEGATIVE); URINE LEUKOCYTE ESTERASE NEG Leu/uL (Negative); URINE PROTEIN NEGATIVE (NEGATIVE); URINE UROBILINOGEN 0.2-1.0 mg/dL (0.2-1.0)
[2018-05-31 20:43] VITALS: PULSE 88
== END 2018-05-31 21:26 | disposition home or self-care (01) ==
LOC: H.ER 16:28
DX: R05 Cough (principal); J02.9 Acute pharyngitis, unspecified; R30.0 Dysuria; B34.9 Viral infection, unspecified
CPT/HCPCS: 81003; 81025; 87070; 87086; 87430; 87804; 96372; 99283; J1885